=== PATIENT | male | born 1940 | race Caucasian/White ===

== ENCOUNTER 2016-12-02 01:04 | Observation (INO) | payer OTHER ==
[~2016-12-02 01:04] MED LIST: ASPIRIN PO STA; NITROGLYCERIN SL PRN
[2016-12-02 01:17] LABS: MANUAL DIFF NEEDED? NO
[2016-12-02 01:19] LABS: BASO% 0.3 % (0.0-0.8); EOS# 0.23 X1000 (0.0-0.7); EOS% 2.2 % (0.0-10.0); HEMATOCRIT 35.8 % (42.0-52.0); IMM GRAN# 0.03 X1000 (0.0-0.04); IMM GRAN% 0.3 % (0.0-0.5); LYMPH# 3.29 X1000 (1.2-3.4); LYMPH% 31.2 % (20.5-51.1); MCH 25.9 PG (27-31); MCHC 33.5 g/dL (33-37); MCV 77.2 FL (81-99); MONO# 0.87 X1000 (0.11-0.59); MONO% 8.2 % (1.7-9.3); MPV 11.9 FL (7.4-10.4); NEUT% 57.8 % (42.2-75.2); PLT 264 X1000 (130-400); RBC 4.64 XMIL (4.7-6.1)
[2016-12-02] MEDS ORDERED: ZOFRAN IV ONE (01:19)
[2016-12-02] MEDS ORDERED: MORPHINE IV ONE (01:19)
[2016-12-02] MEDS ORDERED: PROTONIX IV ONE (01:19)
[2016-12-02] MEDS ORDERED: LOPRESSOR IV ONE (01:19)
[2016-12-02] MEDS ORDERED: NITROGLYCERIN TOP ONE (01:19)
[2016-12-02] MEDS ORDERED: SODIUM CHLORIDE 0.9% INJ ONE (01:19)
[2016-12-02 01:33] LABS: INR 1.04; PROTIME 10.6 Seconds (9.2-11.7); PTT 20.3 Seconds (22.0-36.0)
--- NOTE | 2016-12-02 01:42 | PROVIDER DOCUMENTATION ---
HPI-Chest Pain - General Source: patient - History of Present Illness-CP Location: reports: substernal Chest Pain Radiation: reports: back Quality of Pain: reports: tightness Severity in ED: mild Onset/Duration: other (3 weeks) Timing: intermittent, getting worse Context/Activities at Onset: reports: none Modifying Factors: improves with: nothing Nitro Today/Relief: provided by ED Aspirin Treatment Today: 325 mg x 1, provided by ED Similar Symptoms Previously?: Yes Recently Seen Here or By Another Healthcare Provider: No <Rosa Elena Plascencia - Last Filed: 12/02/16 02:05> <Jacky Nuno - Last Filed: 12/02/16 02:09> - General Chief Complaint: Chest Pain Stated Complaint: CP Time Seen by Provider: 12/02/16 01:18 Allergies/Adverse Reactions: Patient Allergies Allergy/AdvReac Type Severity Reaction Status Date / Time No Known Allergies Allergy Verified 12/02/16 01:17 Home Medications: Home Medication List Medication Instructions Recorded Confirmed Last Taken Type Amlodipine [Norvasc] 5 mg PO DAILY 06/28/16 12/02/16 12/01/16 History Clopidogrel [Plavix] 75 mg PO DAILY 06/28/16 12/02/16 12/01/16 History Glipizide/Metformin HCl 1 tab PO BID 06/28/16 12/02/16 12/01/16 History [Glipizide-Metformin 5-500 mg] Isosorbide Mononitrate E.r. [Imdur] 60 mg PO DAILY 06/28/16 12/02/16 12/01/16 History Metoprolol Succinate 175 mg PO BID 06/28/16 12/02/16 12/01/16 History Omeprazole 40 mg PO DAILY 06/28/16 12/02/16 12/01/16 History Ranolazine [Ranexa] 1,000 mg PO BID 06/28/16 12/02/16 12/01/16 History Omeprazole 20 mg PO HS 12/02/16 12/02/16 12/01/16 History - History of Present Illness-CP Nature of Presenting Problem: 76 year old M presents to the ED via EMS with a cc of chest pain intermittently x3 weeks. PT states pain came on with activity. Pt states yesterday the pain began lasting longer with shortness of breath coming on without activity. Pt has a hx of CAD, HTN, cardiac cath, and A-Fib. PT is noncompliant with medications. (Rosa Elena Plascencia) Review of Systems - Adult - REVIEW OF SYSTEMS - ADULT Constitutional: denies: chills, fever Eyes: reports: no symptoms reported Ears, Nose, Mouth & Throat: reports: no symptoms reported Cardiovascular: reports: chest pain. denies: palpitations Respiratory: reports: shortness of breath. denies: cough Gastrointestinal: denies: nausea, vomiting Genitourinary: reports: no symptoms reported Musculoskeletal: reports: no symptoms reported Integumentary: reports: no symptoms reported Neurological: reports: no symptoms reported Psychiatric: reports: no symptoms reported Endocrine: reports: no symptoms reported Hematologic/Lymphatic: reports: no symptoms reported Allergic/Immunologic: reports: no symptoms reported All Other Systems: Reviewed and Negative <Rosa Elena Plascencia - Last Filed: 12/02/16 02:05> Past History - Adult - PAST MEDICAL HISTORY-ADULT Review of Records: reports: Nursing Assessment Review, Medications Reviewed Major Childhood Illnesses: reports: denies history Cardiovascular: reports: A-Fib, arrhythmia (svt), CAD, HTN, hyperlipidemia, other (SVT ) Respiratory: reports: denies history Gastrointestinal: reports: denies history Obstetrical/Gynecological: reports: denies history Genitourinary: reports: prostate cancer Musculoskeletal: reports: denies history Neurological: reports: denies history Endocrine/Immune: reports: Diabetes Other Conditions: reports: denies history - PRIOR SURGERIES/PROCEDURES Surgical/Procedure History: reports: other (Prostectomy;) - PRIOR HOSPITALIZATIONS Prior Hospitalizations: reports: for similar symptoms - IMMUNIZATION STATUS Childhood Immunizations: See Nurse Assessment Flu Vaccine: See Nurse Assessment - FAMILY HISTORY Family History: reviewed, not pertinent - SOCIAL HISTORY Smoking: non-smoker Substance Use: none/never Alcohol Use Frequency: never <Rosa Elena Plascencia - Last Filed: 12/02/16 02:05> Physical Exam-General - PHYSICAL EXAM-ADULT Initial Vital Signs Reviewed: Yes - CONSTITUTIONAL General Appearance: alert, anxious - RESPIRATORY Respiratory: lungs clear, normal breath sounds, other (left upper anterior chest wall tenderness) - CARDIOVASCULAR Cardiovascular: normal peripheral pulses, regular rate, rhythm, no edema - SKIN Integumentary: normal color, normal turgor, warm/dry - PSYCHIATRIC Psych/Mental Status: oriented x 3, anxious <Rosa Elena Plascencia - Last Filed: 12/02/16 02:05> Progress - EKG 1 Time of EKG reading by physician:: 01:05 EKG Read and Signed by:: Jacky Nuno EKG Interpretation (*Must complete 3 of following elements*): Abnormal Rate: 71 Rhythm: NSR ST Wave: non-specific ST changes - XRAY 1 XRAY Study: Chest Impression: Abnormal XRAY Interpretation: mild CHF: Dr. Nuno- ER MD - CONSULTS/PCP/HOSPITALIST Notification #1 *Consult/PCP/Hospitalist*: Dr. Restrepo- Hospitalist DMM Time Discussed: 02:06 Consult Disposition: Will see in ED, Admit <TemoAlyssiaa - Last Filed: 12/02/16 02:05> <Jacky Nuno - Last Filed: 12/02/16 02:09> - PLAN OF CARE/RESULTS Progress/Plan/Lab Results: plan of care: imaging, labs, medications, EKG Orders Category Date Time Status Cardiac Monitoring DIRECTED Care 12/02/16 01:05 Active Saline Loc NOW Care 12/02/16 01:05 Active CHEST-2 VIEWS [RAD] Stat Exams 12/02/16 01:05 Taken CBC WITH ELECTRONIC DIFF [HEME] Stat Lab 12/02/16 01:05 Completed CK PROFILE [SP CHEM] Stat Lab 12/02/16 01:05 Completed COMPREHENSIVE METABOLIC PANEL [CHEM] Stat Lab 12/02/16 01:05 Completed D-DIMER [CHEM] Stat Lab 12/02/16 01:05 Completed MAGNESIUM [CHEM] Stat Lab 12/02/16 01:05 Completed PRO B-NATRIURETIC PEPTIDE Stat Lab 12/02/16 01:05 Completed PROTIME WITH INR [COAG] Stat Lab 12/02/16 01:05 Completed PTT [COAG] Stat Lab 12/02/16 01:05 Completed TROPONIN T Stat Lab 12/02/16 01:05 Completed Aspirin Med 12/02/16 01:04 Discontinued 325 mg PO STAT STA Furosemide [Lasix] Med 12/02/16 02:05 Discontinued 40 mg IV NOW ONE Metoprolol [Lopressor] Med 12/02/16 01:19 Discontinued 5 mg IV NOW ONE Morphine Med 12/02/16 01:19 Discontinued 4 mg IV NOW ONE Nitroglycerin Med 12/02/16 01:19 Discontinued 1 inch TOP NOW ONE Nitroglycerin Sl [Nitroglycerin] Med 12/02/16 01:04 Active 0.4 mg SL Q5M PRN PRN Ondansetron [Zofran] Med 12/02/16 01:19 Discontinued 4 mg IV NOW ONE Pantoprazole [Protonix] Med 12/02/16 01:19 Discontinued 40 mg IV NOW ONE Sodium Chloride 0.9% Med 12/02/16 01:19 Discontinued 10 ml INJ NOW ONE EKG [EKG] Stat Ther 12/02/16 01:05 Ordered Laboratory Tests 12/02/16 12/02/16 12/02/16 01:05 01:05 01:05 WBC 10.55 RBC 4.64 L Hgb 12.0 L Hct 35.8 L MCV 77.2 L MCH 25.9 L MCHC 33.5 RDW Std Deviation 14.3 Plt Count 264 MPV 11.9 H Immature Gran % (Auto) 0.3 Neut % (Auto) 57.8 Lymph % (Auto) 31.2 [place] % (Auto) 8.2 Eos % (Auto) 2.2 Baso % (Auto) 0.3 Immature Gran # (Auto) 0.03 Neut # (Auto) 6.10 Lymph # (Auto) 3.29 [place] # (Auto) 0.87 H Eos # (Auto) 0.23 Baso # (Auto) 0.03 PT INR PTT (Actin FS) D-Dimer 0.14 Sodium 134 L Potassium 4.7 Chloride 97 L Carbon Dioxide 24 L Anion Gap 13 BUN 22 Creatinine 1.3 H Estimated GFR/1.73 m2 54 BUN/Creatinine Ratio 17 Glucose 320 H Calculated Osmolality 284 Calcium 9.2 Magnesium 1.2 L Total Bilirubin 0.31 AST 16 ALT 14 Alkaline Phosphatase 120 Creatine Kinase 41 Troponin T Fjh-O-Bqdivvwuqmk Pept Total Protein 7.7 Albumin 3.6 Globulin 4.1 Albumin/Globulin Ratio 0.9 12/02/16 12/02/16 12/02/16 01:05 01:05 01:05 WBC RBC Hgb Hct MCV MCH MCHC RDW Std Deviation Plt Count MPV Immature Gran % (Auto) Neut % (Auto) Lymph % (Auto) [place] % (Auto) Eos % (Auto) Baso % (Auto) Immature Gran # (Auto) Neut # (Auto) Lymph # (Auto) [place] # (Auto) Eos # (Auto) Baso # (Auto) PT 10.6 INR 1.04 PTT (Actin FS) 20.3 L D-Dimer Sodium Potassium Chloride Carbon Dioxide Anion Gap BUN Creatinine Estimated GFR/1.73 m2 BUN/Creatinine Ratio Glucose Calculated Osmolality Calcium Magnesium Total Bilirubin AST ALT Alkaline Phosphatase Creatine Kinase Troponin T 0.090 Gyz-Y-Qazoxajmiki Pept 1558 H Total Protein Albumin Globulin Albumin/Globulin Ratio Vital Signs - 24 hr 12/02/16 12/02/16 01:10 01:58 Temperature 97.8 F Pulse Rate 70 65 Respiratory 18 12 Rate Blood Pressure 216/110 167/84 O2 Sat by Pulse 100 98 Oximetry Pt given results. Pt will be admitted to the hospitalist group. PT in agreement with plan of care. (Rosa Elena Plascencia) Departure <Rosa Elena Plascencia - Last Filed: 12/02/16 02:05> - Departure Time of Disposition Order: 02:08 Certified Medical Emergency: Emergent <Jacky Nuno - Last Filed: 12/02/16 02:09> - Departure DIAGNOSIS: Chest pain at rest, Hypertensive urgency Disposition: ADMITTED INPATIENT 09 Condition: Stable Referrals: None,PCP [Primary Care Provider] - Attestation - Scribe Verification/Attestation Scribe:: Rosa Elena Plascencia Acting as Scribe for:: Jacky Nuno Scribe documention review:: This chart was documented by a scribe and accurately reflects the service the provider performed and the decisions made by the provider. <Rosa Elena Plascencia - Last Filed: 12/02/16 02:05> Physician Attestation - Physician Attestation I, the provider, attest to the following statement:: Jacky Nuno Physician documentation Attestation:: This documentation recorded by the scribe accurately reflects the service I personally performed and the decisions made by me. <Rosa Elena Plascencia - Last Filed: 12/02/16 02:05>
[2016-12-02 01:43] LABS: ALBUMIN 3.6 g/dL (3.5-5.0); CALCIUM 9.2 mg/dL (8.8-10.2); MAGNESIUM 1.2 mg/dL (1.5-2.7); POTASSIUM 4.7 mmol/L (3.5-5.1); TOTAL BILIRUBIN 0.31 mg/dL (0.20-1.00); TOTAL PROTEIN 7.7 g/dL (6.3-8.3)
[2016-12-02] MEDS ORDERED: LASIX IV ONE (02:05)
[2016-12-02] MEDS ORDERED: MAGNESIUM SULFATE 2 GM/S.W.I. 50 ML IV ONE (03:06)
--- NOTE | 2016-12-02 04:23 | HISTORY AND PHYSICAL ---
PRIMARY CARE PHYSICIAN: None. CHIEF COMPLAINT: Chest pain. HISTORY OF PRESENTING ILLNESS: This is a 76-year-old male with a history of diabetes mellitus type 2, hypertension and atrial fibrillation, had presented to the emergency department complaining of chest pain that has been going on intermittently for the past 2 weeks. He states that he has some mild shortness of breath and he described chest pain as pressure-like. He states over the past day or so, it started getting worse and rated about a 6/10 and subsequently had come to the emergency department. In the ER, he was evaluated. Due to his presenting symptoms, it was thought that he would need hospitalization for further management. At the time of my examination, he had denied any headache, fever, chills, nausea, vomiting, diarrhea, hemoptysis, melena, weight changes, but complained of chest discomfort. PAST MEDICAL HISTORY: Include diabetes mellitus type 2, hypertension, atrial fibrillation. PAST SURGICAL HISTORY: Prostate surgery. ALLERGIES: No known drug allergies. CURRENT MEDICATIONS: As in the MAR. SOCIAL HISTORY: He denies any history of smoking, alcohol or illicit drug use. FAMILY HISTORY: Positive for coronary disease in mother. REVIEW OF SYSTEMS: Twelve point systems is as in HPI. Other systems negative. PHYSICAL EXAMINATION: GENERAL: Cooperative, friendly male. He is resting comfortably now. VITAL SIGNS: Temperature 97.8 degrees, pulse 70, respiration 18, blood pressure 167/84. HEENT: Atraumatic normocephalic. Extraocular movements intact. PERRLA. NECK: No masses. CHEST: Clear to auscultation. CARDIOVASCULAR: Regular. ABDOMEN: Soft. Positive bowel sounds. EXTREMITIES: No edema. NEURO: He is awake, alert, oriented x3. : No bladder distention. SKIN: Warm. LABORATORIES AND STUDIES: Sodium 134, potassium 4.7, chloride 97, CO2 is 24, BUN is 22, creatinine is 1.3, glucose is 320, magnesium is 1.2. WBC 10.55, hemoglobin 12.0, hematocrit 35.8, platelets 264,000. ASSESSMENT: This is a 76-year-old male with a history of diabetes mellitus type 2, hypertension and atrial fibrillation, had presented to the emergency department will complaint of chest pain. We will place patient in for observation for further evaluation and management. 1. Chest pain. 2. Diabetes mellitus type 2. 3. Hypertension. 4. Hypomagnesemia. PLAN: 1. We will admit the patient to medical floor with telemetry. 2. Continue with cardiac workup. Check EKG, serial cardiac enzymes. Have patient continue on aspirin with use of sublingual nitroglycerin and morphine p.r.n. chest pain. 3. We will monitor blood glucose closely and put patient on sliding scale insulin regimen. 4. We will monitor blood pressure. Resume antihypertensive agents. 5. We will replace his magnesium. 6. We will put patient on DVT prophylaxis with EARLINE summers. 7. We will continue to follow and reassess.
[2016-12-02] MEDS ORDERED: TYLENOL PO PRN (05:27)
[2016-12-02] MEDS ORDERED: SODIUM CHLORIDE 0.9% INJ SCH (05:27)
[2016-12-02] MEDS ORDERED: ZOFRAN IV PRN (05:27)
[2016-12-02] MEDS: PROTONIX IV SCH (05:51)
[2016-12-02] MEDS ORDERED: PRILOSEC PO SCH ×2 (07:00→09:00)
--- NOTE | 2016-12-02 07:37 | Diag Imaging Result Document ---
PROCEDURE NAME: CHEST-2 VIEWS - 12/02/2016 CHEST X-RAY, 2 VIEWS: COMPARISON: 10/08/2016. FINDINGS: The lungs are normally expanded and clear. Heart size and mediastinal contours are normal. No pneumothorax or pleural effusion. IMPRESSION: Negative exam.
[2016-12-02] MEDS: HUMULIN R SUBQ SCH ×4 (07:45→20:26)
[2016-12-02] MEDS ORDERED: IMDUR PO SCH (09:00)
[2016-12-02] MEDS ORDERED: PLAVIX PO SCH (09:00)
[2016-12-02] MEDS ORDERED: ASPIRIN PO SCH (09:00)
[2016-12-02] MEDS ORDERED: NORVASC PO SCH (09:00)
[2016-12-02] MEDS: RANEXA PO SCH ×2 (09:28→20:25)
[2016-12-02] MEDS: TOPROL XL PO SCH ×3 (09:29→20:26)
[2016-12-02] MEDS: NORCO-5 PO PRN ×2 (10:32→19:00)
--- NOTE | 2016-12-02 14:12 | CONSULTATION ---
DATE OF CONSULTATION: 12/02/2016 INDICATION FOR THE CONSULTATION: Chest pain, non ST-elevation [place]. HISTORY OF PRESENT ILLNESS: Mr. Lea is a 76-year-old white male with a history of coronary disease. He actually had severe 2 vessel disease noted on catheterization in 2010, however refused bypass at that time. He presented for evaluation of chest discomfort that has been occurring over the last 3 days or so. Most of these episodes occur throughout the day. He is a very poor historian. It does not seem that there is any sort of exertional component and all episodes seem to occur at rest. He has not had any other associated symptoms. It seems like those symptoms get better when he lays down at night. He can report no orthopnea, no syncope. I believe he has had compliance with his medications. However again he is an extremely poor historian. PAST MEDICAL HISTORY: Significant for: 1. Coronary artery disease. Last cardiac catheterization was performed in [place] in 2010. At that time, he had an EDP of 13. Right coronary showed 50%-60% lesion at the ostium. Left main had ostium 30% lesion. Left anterior descending had a proximal 70% at the first diagonal and an 80% at the second diagonal. The circumflex had a lesion of around 80% in the mid segment. Again, he turned down bypass at that time. 2. Paroxysmal atrial fibrillation. Not a candidate for anticoagulation secondary to history of GI bleeds. 3. History of CVA. 4. Palpitations. 5. Hypertension. 6. Hyperlipidemia. 7. Type 2 diabetes. 8. Previous smoker. Quit at age 42. 9. History of carotid artery disease. 10. History of GI bleeding. 11. Nephrolithiasis. SOCIAL HISTORY: No current tobacco abuse. Again, he quit around the age of 42. He is . FAMILY HISTORY: Significant for a father with a CVA around the age of 62. REVIEW OF SYSTEMS: A 10 system review of systems is negative except for those as mentioned in HPI. PHYSICAL EXAMINATION: Vital Signs: He has been afebrile. Heart rates in the 50s to 60s. His blood pressures have been widely variable. In the room they were as low was 130s and as high as the 160s. Generally: In no acute distress. HEENT: Oropharynx is moist. Poor dentition. Eye examination: [place] conjunctivae. White sclerae. Neck: Examination shows no obvious thyromegaly or thyroid tenderness. Cardiovascular: He is in a regular rate and rhythm. He has no obvious murmurs. He has no S3. He has no lower extremity edema. No carotid bruits. Chest: Clear bilaterally. No increased work of breathing. Abdomen: Soft, nontender, nondistended. No obvious organomegaly. Skin Exam: Warm and dry throughout without any rashes. Neurological: He seems to be moving all extremities well. Cranial nerves 2-12 are intact without any sensation deficits. Psychiatric: The patient is alert, oriented. He seems mildly anxious. He seems to have repetitive circular questioning. PERTINENT DATA: Chest x-ray was unremarkable. His EKG showed sinus rhythm, with no clear evidence of ischemic changes. White count is 10.5. His hematocrit is 35.8, platelet count is 264,000. His INR is 1. D-dimer 0.14. Sodium 134, potassium 4.,7 BUN 22, creatinine 1.3. His cardiac enzymes have trended positive with the initial 0.090, second 0.152. ProBNP is 1558. ASSESSMENT: Non ST-elevation myocardial infarction in a patient with a history of multi-vessel coronary artery disease. PLAN: Patient is refusing echocardiogram. In addition he is refusing inpatient stay. I had an at-length discussion with him about the risks, benefits alternatives to the evaluation. Despite the risk of potential in the immediate future with his potentially wanting to go home he seems to persist with this. He reportedly has some issues with some illnesses in his family members and is concerned about those. I urgently recommended that he not go home and stay for a full thorough evaluation. However he seems resistant to do this. If the patient chooses to stay we will likely need to proceed with cardiac catheterization.
[2016-12-03] MEDS: PROTONIX IV SCH ×2 (04:09→08:45)
[2016-12-03] MEDS: NORCO-5 PO PRN (04:10)
[2016-12-03] MEDS: XANAX PO ONE ×2 (04:10→04:18)
[2016-12-03 04:18] VITALS: BP 153/65
--- NOTE | 2016-12-03 08:05 | Diag Imaging Result Document ---
PROCEDURE NAME: HEAD W/O CONTRAST - 12/03/[address], 12/03/2016: A CT dose reduction protocol was used. COMPARISON: 10/08/2016. FINDINGS: Stable mild atrophy and periventricular white matter chronic microvascular disease. No intracranial mass or hemorrhage. The skull is intact. The sinuses, mastoids, and middle ears are clear. IMPRESSION: No acute disease or change from prior. [facility]
--- NOTE | 2016-12-03 19:18 | DISCHARGE SUMMARY ---
ADMISSION DATE: 12/02/2016 DISCHARGE DATE: 12/03/2016 DATE OF ADMISSION: 12/02/2016. DATE OF DISCHARGE: The patient left AMA on 12/03/2016. CONSULTATIONS: Jason Hills M.D. PROCEDURE: Head CT showed no acute disease or change from prior. Stable mild atrophy and periventricular white matter. Chronic microvascular disease. DISCHARGE DIAGNOSES: 1. Chest pain. 2. Diabetes mellitus type 2. 3. Hypertension. 4. Hypermagnesemia. 5. Coronary artery disease. Last heart catheterization was performed in [place] in 2010. 6. Paroxysmal atrial fibrillation. He is not a candidate for anticoagulation secondary to GI bleed. 7. History of cerebrovascular accident. 8. Palpitations. 9. Hyperlipidemia. 10. Previous smoker, quit at age 42. 11. Carotid artery disease history. 12. GI bleed history. 13. Nephrolithiasis history. 14. Qhu-OC-nvgmhytse myocardial infarction this admit. 15. Questionable undiagnosed dementia versus acute delirium. HOSPITAL COURSE: Briefly, Mr. Lea is a 76-year-old male with a history of diabetes mellitus, hypertension, atrial fibrillation, previous GI bleed who is not a candidate for anticoagulation, CAD with heart catheterization in the past at [facility]. The patient came to the ED complaining of chest pain intermittently for the past 2 weeks. He states he has some mild shortness of breath. He describes his chest pain as pressure. He states that over the past day or so it started getting worse and subsequently he came to the ED. The patient did have positive troponins. Despite having a non-STEMI in a patient with a history of multivessel coronary artery disease, the patient was refusing an echocardiogram. He was also refusing inpatient stay. Dr. Hills had an at length discussion with him about the risks, benefits and alternatives of the evaluation despite the risk of potential in the immediate future with his potentially wanting to go home. He did report to Dr. Schmitz so he has some issues with some illnesses in family members and was concerned about those. He was urgently recommended not to go home and to stay for a thorough evaluation. He was reluctant and if the patient chose to say he would likely need to proceed with a cardiac catheterization. The patient throughout the night was wanting to sign out AMA. Again it was discussed with the patient if he could stay. The patient was alert and oriented x4. It was discussed with Blaire Foley CAMERON and Dr. Restrepo who stated the patient was alert and oriented, that he could sign out AMA. Just just a few minutes later the patient was wanting to call his family. He spoke with his ex- who thought that he had been gambling and that he was being tied down to the bed. None of these things were occurring. The patient was no longer alert and oriented x4. He would come back again and be alert and oriented x4, and then he would come back with confusion this a.m. I guess he chose to sign out AMA before talking with any doctors. The patient has already left. I have made Dr. Mckin[place] aware that the patient has left. DISPOSITION: Patient left AMA. Dictated by CAMERON Witt for Elias Wright MD
== END 2016-12-03 08:22 | disposition left against medical advice (07) ==
LOC: EDBD → SUPCPDRO 01:04 → ED 01:04 → EDIPHOLD 03:07 → 3S 18:29
PROVIDERS: ATTEND Internal Medicine
DX: R07.89 Other chest pain (principal); I21.4 Non-ST elevation (NSTEMI) myocardial infarction; E11.9 Type 2 diabetes mellitus without complications; I10 Essential (primary) hypertension; E83.41 Hypermagnesemia; I25.10 Atherosclerotic heart disease of native coronary artery without angina pectoris; I48.91 Unspecified atrial fibrillation; E78.5 Hyperlipidemia, unspecified; R06.02 Shortness of breath; M54.9 Dorsalgia, unspecified; F03.90 Unspecified dementia, unspecified severity, without behavioral disturbance, psychotic disturbance, mood disturbance, and anxiety; Z79.02 Long term (current) use of antithrombotics/antiplatelets; Z79.899 Other long term (current) drug therapy; Z79.84 Long term (current) use of oral hypoglycemic drugs; Z91.14 Patient's other noncompliance with medication regimen; Z90.79 Acquired absence of other genital organ(s); Z86.73 Personal history of transient ischemic attack (TIA), and cerebral infarction without residual deficits; Z82.49 Family history of ischemic heart disease and other diseases of the circulatory system; Z87.891 Personal history of nicotine dependence; Z87.442 Personal history of urinary calculi; Z82.3 Family history of stroke
CPT/HCPCS: 70450; 71020; 80053; 82550; 82948; 83735; 83880; 84484; 85025; 85379; 85610; 85730; 93005; 96365; 96375; C9113; J1940; J2270; J2405; J3475; S0164

== ENCOUNTER 2019-01-12 00:38 | Inpatient (IN) ==
[2019-01-12] MEDS ORDERED: ADENOCARD ONE ×3 (00:50→07:37)
[2019-01-12] MEDS ORDERED: NS 1,000 ML ONE ×2 (00:51→07:37)
[2019-01-12] MEDS ORDERED: ADENOCARD IV ONE ×2 (01:01→08:02)
[2019-01-12] MEDS ORDERED: LOPRESSOR IV ONE ×2 (01:01→01:26)
[2019-01-12 01:24] LABS: BASO# 0.05 X1000 (0.0-0.2); BASO% 0.4 % (0.0-0.8); EOS# 0.26 X1000 (0.0-0.7); EOS% 2.1 % (0.0-10.0); HEMATOCRIT 40.7 % (42.0-52.0); HEMOGLOBIN 13.6 g/dL (14.0-18.0); IMM GRAN# 0.04 X1000 (0.0-0.04); IMM GRAN% 0.3 % (0.0-0.5); LYMPH# 5.08 X1000 (1.2-3.4); LYMPH% 40.2 % (20.5-51.1); MCH 28.1 PG (27-31); MCHC 33.4 g/dL (33-37); MCV 84.1 FL (81-99); MONO# 1.26 X1000 (0.11-0.59); MPV 12.1 FL (7.4-10.4); NEUT# 5.95 X1000 (1.4-6.5); PLT 242 X1000 (130-400); RBC 4.84 XMIL (4.7-6.1); RDW 13.3 % (11.5-14.5); WBC 12.64 X1000 (4.8-10.8)
[2019-01-12] MEDS ORDERED: ASPIRIN PO ONE (02:15)
[2019-01-12] MEDS ORDERED: NITROGLYCERIN TOP ONE (02:15)
[2019-01-12] MEDS ORDERED: NS 500 ML IV ONE (02:31)
[2019-01-12 02:40] LABS: CALCIUM 9.1 mg/dL (8.8-10.2); CREATININE 1.2 mg/dL (0.7-1.2); POTASSIUM 4.6 mmol/L (3.5-5.1)
--- NOTE | 2019-01-12 04:05 | PROVIDER DOCUMENTATION ---
This chart was entered by Reagan Arroyo Scribe, acting as scribe for Nalini Banerjee MD. HPI-Cardiac General - General Chief Complaint: Palpitations Stated Complaint: tachycardia Time Seen by Provider: 01/12/19 00:41 Source: patient Allergies/Adverse Reactions: Patient Allergies Allergy/AdvReac Type Severity Reaction Status Date / Time No Known Allergies Allergy Verified 12/16/16 02:22 Home Medications: Home Medication List Medication Instructions Recorded Confirmed Last Taken Type Clopidogrel [Plavix] 75 mg PO DAILY 06/28/16 09/06/17 09/05/17 History Glipizide/Metformin HCl 1 tab PO BID 06/28/16 09/06/17 09/05/17 History [Glipizide-Metformin 5-500 mg] Metoprolol Succinate 200 mg PO BID 06/28/16 09/06/17 09/05/17 History Omeprazole 40 mg PO DAILY 06/28/16 09/06/17 09/05/17 History Butalb/APAP/Caffeine [Fioricet] 1 each PO DAILY PRN 09/06/17 09/06/17 09/05/17 History Promethazine [Phenergan] 25 mg PO DAILY PRN 09/06/17 09/06/17 09/05/17 History - History of Present Illness-Cardiac Nature of Presenting Problem: Pt is a 78 y/o M presents to the ED with an elevated heart rate. Pt report he woke up feeling weak and when he went to check his pulse it was going so fast he could not count it. Pt reports he has hx of supraventricular tachycardia. He says he was coming to the ED every 5-6 months for it until he had stent placed. He reports some chest pain only a after he got to the ED, no dyspnea. Location: reports: substernal Quality of Pain: reports: sharp Severity in ED: moderate Onset/Duration: just prior to arrival Timing: still present Context/Activities at Onset: reports: none Modifying Factors: improves with: nothing Palpitation Quality: fast/pounding heart beat History of arrythmia: reports: SVT Recent use of:: reports: no stimulants Nitro Today/Relief: reports: no nitro taken today Aspirin Treatment Today: reports: no aspirin today Similar Symptoms Previously?: Yes Recently Seen Here or By Another Healthcare Provider: No Review of Systems - Adult - REVIEW OF SYSTEMS - ADULT Constitutional: reports: other (weakness). denies: chills, fever Eyes: reports: no symptoms reported Ears, Nose, Mouth & Throat: reports: no symptoms reported Cardiovascular: reports: chest pain, palpitations. denies: edema, orthopnea, poor circulation, syncope Respiratory: reports: no symptoms reported Gastrointestinal: reports: no symptoms reported Genitourinary: reports: no symptoms reported Musculoskeletal: denies: back pain, neck pain Integumentary: reports: no symptoms reported Neurological: denies: dizziness/vertigo, headache/migraines Psychiatric: reports: no symptoms reported Endocrine: reports: no symptoms reported Hematologic/Lymphatic: reports: no symptoms reported Allergic/Immunologic: reports: no symptoms reported All Other Systems: Reviewed and Negative Past History - Adult - PAST MEDICAL HISTORY-ADULT Review of Records: reports: Old Records Reviewed, Nursing Assessment Review, Medications Reviewed Major Childhood Illnesses: reports: denies history Cardiovascular: reports: A-Fib, arrhythmia (svt), CAD, HTN, hyperlipidemia, other (SVT ) Respiratory: reports: denies history Gastrointestinal: reports: denies history Obstetrical/Gynecological: reports: denies history Genitourinary: reports: prostate cancer Musculoskeletal: reports: denies history Neurological: reports: denies history Endocrine/Immune: reports: Diabetes Other Conditions: reports: denies history - PRIOR SURGERIES/PROCEDURES Surgical/Procedure History: reports: reviewed, not pertinent, other (Prostectomy;) - PRIOR HOSPITALIZATIONS Prior Hospitalizations: reports: for similar symptoms - IMMUNIZATION STATUS Childhood Immunizations: See Nurse Assessment Flu Vaccine: See Nurse Assessment - FAMILY HISTORY Family History: reviewed, not pertinent - SOCIAL HISTORY Smoking: non-smoker, quit greater than 1 year Living Situation: alone Physical Exam-General - PHYSICAL EXAM-ADULT Initial Vital Signs Reviewed: Yes - CONSTITUTIONAL General Appearance: appears well, alert, no apparent distress - EYES Eyes: PERRL/EOMI, pink conjunctivae - HEAD, EARS, NOSE, MOUTH & THROAT HENMT: moist mucous membranes, normal ENT inspection, pharynx normal - NECK Neck: non-tender, full range of motion, supple, normal inspection - RESPIRATORY Respiratory: lungs clear, normal breath sounds, no pleuratic chest pain, no respiratory distress, no accessory muscle use - CARDIOVASCULAR Cardiovascular: no edema, tachycardia (regular) - MUSCULOSKELETAL Back Exam: normal inspection, no CVA tenderness, no vertebral tenderness Extremity: normal range of motion, non-tender, normal gait, normal inspection - SKIN Integumentary: normal color, normal turgor, warm/dry - NEUROLOGIC Neurologic: grossly normal, no motor/sensory deficits - PSYCHIATRIC Psych/Mental Status: normal mood/affect, normal thought content, normal thought process, oriented x 3 Progress - PLAN OF CARE/RESULTS Progress/Plan/Lab Results: Vital Signs - 8 hr 01/12/19 00:40 01/12/19 01:14 01/12/19 01:17 Temperature 97.9 F Pulse Rate 180 H 128 H 132 H Respiratory Rate 20 17 12 Blood Pressure 183/144 193/110 154/101 O2 Sat by Pulse Oximetry 98 100 100 01/12/19 01:23 01/12/19 01:27 01/12/19 01:32 Temperature Pulse Rate 129 H 117 H 107 H Respiratory Rate 24 19 18 Blood Pressure 190/132 159/119 192/119 O2 Sat by Pulse Oximetry 96 99 99 01/12/19 01:37 01/12/19 01:43 01/12/19 01:47 Temperature Pulse Rate 102 H 98 H 101 H Respiratory Rate 15 19 18 Blood Pressure 198/124 186/103 171/99 O2 Sat by Pulse Oximetry 100 99 99 01/12/19 01:52 01/12/19 01:57 01/12/19 02:02 Temperature Pulse Rate 99 H 101 H 100 H Respiratory Rate 17 15 17 Blood Pressure 165/105 181/110 181/103 O2 Sat by Pulse Oximetry 99 99 99 01/12/19 02:07 01/12/19 02:12 01/12/19 02:17 Temperature Pulse Rate 104 H 101 H 99 H Respiratory Rate 16 12 24 Blood Pressure 188/108 184/131 187/107 O2 Sat by Pulse Oximetry 100 98 98 01/12/19 02:23 01/12/19 02:27 01/12/19 02:32 Temperature Pulse Rate 104 H 113 H 94 H Respiratory Rate 13 18 12 Blood Pressure 176/90 173/96 172/112 O2 Sat by Pulse Oximetry 99 95 99 01/12/19 02:37 01/12/19 02:42 01/12/19 02:47 Temperature Pulse Rate 99 H 94 H 93 H Respiratory Rate 14 15 19 Blood Pressure 182/95 190/104 177/97 O2 Sat by Pulse Oximetry 98 99 99 01/12/19 02:52 01/12/19 02:57 01/12/19 03:02 Temperature Pulse Rate 96 H 93 H 95 H Respiratory Rate 16 17 19 Blood Pressure 177/105 176/98 178/111 O2 Sat by Pulse Oximetry 98 98 96 01/12/19 03:07 Temperature Pulse Rate 96 H Respiratory Rate 12 Blood Pressure 181/108 O2 Sat by Pulse Oximetry 99 Laboratory Results - last 24 hr 01/12/19 01/12/19 01/12/19 00:52 00:52 01:36 WBC 12.64 H RBC 4.84 Hgb 13.6 L Hct 40.7 L MCV 84.1 MCH 28.1 MCHC 33.4 RDW Std Deviation 13.3 Plt Count 242 MPV 12.1 H Immature Gran % (Auto) 0.3 Neut % (Auto) 47.0 Lymph % (Auto) 40.2 [place] % (Auto) 10.0 H Eos % (Auto) 2.1 Baso % (Auto) 0.4 Immature Gran # (Auto) 0.04 Neut # (Auto) 5.95 Lymph # (Auto) 5.08 H [place] # (Auto) 1.26 H Eos # (Auto) 0.26 Baso # (Auto) 0.05 Sodium Potassium Chloride Carbon Dioxide Anion Gap BUN Creatinine Estimated GFR/1.73 m2 BUN/Creatinine Ratio Glucose POC Glucose 321 H D Calculated Osmolality Calcium Troponin T Hmx-K-Ojqpshewzle Pept 348 01/12/19 01/12/19 01:39 01:39 WBC RBC Hgb Hct MCV MCH MCHC RDW Std Deviation Plt Count MPV Immature Gran % (Auto) Neut % (Auto) Lymph % (Auto) [place] % (Auto) Eos % (Auto) Baso % (Auto) Immature Gran # (Auto) Neut # (Auto) Lymph # (Auto) [place] # (Auto) Eos # (Auto) Baso # (Auto) Sodium 139 Potassium 4.6 Chloride 100 Carbon Dioxide 22 L Anion Gap 17 BUN 21 Creatinine 1.2 Estimated GFR/1.73 m2 59 BUN/Creatinine Ratio 18 Glucose 314 H POC Glucose Calculated Osmolality 292 Calcium 9.1 Troponin T 0.029 Dyn-A-Coizvlyphsn Pept Orders Category Date Time Status IV Insertion ORDERED Care 01/12/19 01:01 Active CHEST-1 VIEW [RAD] Stat Exams 01/12/19 01:01 Taken BASIC METABOLIC PANEL [CHEM] Stat Lab 01/12/19 01:39 Completed CBC WITH ELECTRONIC DIFF [HEME] Stat Lab 01/12/19 00:52 Completed PRO B-NATRIURETIC PEPTIDE Stat Lab 01/12/19 00:52 Completed TROPONIN T Stat Lab 01/12/19 01:39 Completed 0.9% Sodium Chloride Inj [Ns] 1,000 ml Med 01/12/19 00:51 Discontinued .ROUTE As directed 0.9% Sodium Chloride Inj [Ns] 500 ml Med 01/12/19 02:31 Discontinued IV Wide Open mls/hr Adenosine [Adenocard] Med 01/12/19 00:50 Discontinued 24 mg .ROUTE .STK-MED ONE Adenosine [Adenocard] Med 01/12/19 00:59 Discontinued 6 mg .ROUTE .STK-MED ONE Adenosine [Adenocard] Med 01/12/19 01:01 Discontinued 6 mg IV NOW ONE Aspirin Med 01/12/19 02:15 Discontinued 325 mg PO NOW ONE Metoprolol [Lopressor] Med 01/12/19 01:01 Discontinued 5 mg IV NOW ONE Metoprolol [Lopressor] Med 01/12/19 01:26 Discontinued 5 mg IV NOW ONE Nitroglycerin Med 01/12/19 02:15 Discontinued 1 inch TOP NOW ONE EKG [EKG] Stat Ther 01/12/19 00:39 Ordered palpitations, with SVT with HR 180. Immediately treated with adenosine with improvement in HR to 120 and resolution of palpitations. metoprolol given and will further evaluate for causes including but not limited to svt, acs, electrolyte imbalance, pe, ptx pna Result Diagrams: 01/12/19 00:52 01/12/19 01:39 - REASSESSMENT Reassessment #1 Status: improving (feeling well, HR well controlled. chest pain improved. ED work up unremarkable but presentation concerning for ACS will admit for furhter evalation and treatmnet. Discussed case with Dr. Restrepo, Hospitalist, who will s ee and admit pt.) - EKG 1 Time of EKG reading by physician:: 00:42 EKG Read and Signed by:: Nalini Banerjee EKG Interpretation (*Must complete 3 of following elements*): Abnormal Rate: 187 Rhythm: SVT ST Wave: depressed Comments: Nonspecific T wave abnormality 2 Time of EKG reading by physician:: 00:55 (After 6mg of Adenosine) EKG Read and Signed by:: Nalini Bnaerjee EKG Interpretation (*Must complete 3 of following elements*): Abnormal Rate: 139 Rhythm: SVT ST Wave: depressed Prior EKG Comparison: changes noted (rate change) Comments: Nonspecific T wave abnormality - XRAY 1 XRAY Study: Chest Impression: Normal (Negative) Departure - Departure Date of Disposition Decision: 01/12/19 Time of Disposition Decision: 04:05 DIAGNOSIS: SVT (supraventricular tachycardia) Chest pain Qualifiers: Chest pain type: unspecified Qualified Code(s): R07.9 - Chest pain, unspecified Disposition: ADMITTED INPATIENT 09 Certified Medical Emergency: Emergent Condition: Good - Critical Care Note This patient required my direct & personal management of CC.: Yes Total Time (mins): 32 Critical Care Statement: This patient required my direct personal management to treat or rule out processes, the absence of which, could potentiallly result in sudden, clinically significant life or limb threatening deterioration. Attestation - Physician/ ALINE Attestation The physician spent face to face time with patient:: Yes Advanced Practice Provider documentation review:: Supervising physician onsite and consulted in the evaluation and care of this patient. The physician did have a face to face encounter with the patient. This chart was documented by the indicated scribe, (Reagan Arroyo Scribe) and accurately reflects the services I performed and decisions made by me, Nalini Banerjee MD, as attested by the provider's signature.
--- NOTE | 2019-01-12 06:19 | Diag Imaging Result Doc PS360 ---
CHEST-1 VIEW - 01/12/2019 INDICATION: chest pain COMPARISON: 09/05/2017 FINDINGS: The lungs are normally expanded and clear. Heart size and mediastinal contours are normal. No pneumothorax or pleural effusion. IMPRESSION: Negative exam. Electronically signed by Gary Rogers 01/12/2019 6:15 AM
--- NOTE | 2019-01-12 07:27 | EKG Report ---
Test Performed on : 01/12/2019 06:47:43 AM Test Reason : Chest Pain, SVT Blood Pressure : / mmHG Vent. Rate : 166 BPM Atrial Rate : 170 BPM P-R Int : 000 ms QRS Dur : 096 ms QT Int : 256 ms P-R-T Axes : 000 020 161 degrees QTc Int : 425 ms Supraventricular tachycardia. Marked ST abnormality, possible anterior subendocardial injury Abnormal ECG When compared with ECG of 12-JAN-2019 00:55, (Unconfirmed) Non-specific change in ST segment in Inferior leads T wave inversion now evident in Anterior leads Confirmed by Luis MARIE, Joseph ([id number]) on 01/12/2019 8:48:30 AM
[2019-01-12] MEDS ORDERED: CARDIZEM IV ONE (07:32)
[2019-01-12] MEDS ORDERED: LANOXIN IV ONE (07:32)
[2019-01-12] MEDS ORDERED: CORDARONE 360 MG/D5W 360 MG/200 ML IV.SOLN IV ONE (07:33)
[2019-01-12] MEDS ORDERED: CORDARONE 150 MG/D5W 150 MG/100 ML IV.SOLN IV ONE (07:33)
--- NOTE | 2019-01-12 07:33 | EKG Report ---
Test Performed on : 01/12/2019 00:42:57 AM Test Reason : tachycardia Blood Pressure : / mmHG Vent. Rate : 187 BPM Atrial Rate : 092 BPM P-R Int : 000 ms QRS Dur : 086 ms QT Int : 258 ms P-R-T Axes : 000 048 118 degrees QTc Int : [address] depression, consider subendocardial injury Nonspecific T wave abnormality Abnormal ECG When compared with ECG of 05-MAY-2018 05:25, Vent. rate has increased BY 100 BPM Non-specific change in ST segment in Inferior leads ST more depressed in Anterior leads Nonspecific T wave abnormality now evident in Lateral leads Unconfirmed Result
[2019-01-12] MEDS ORDERED: MAGNESIUM SULFATE 4 GM/S.W.I. 4 GM/100 ML IVPB IV ONE (08:12)
[2019-01-12] MEDS ORDERED: TYLENOL PO PRN (08:33)
--- NOTE | 2019-01-12 08:54 | Diag Imaging Result Doc PS360 ---
KUB ABDOMEN - 01/12/2019 INDICATION: Constipation, Abdominal Pain COMPARISON: 07/27/2011 FINDINGS: There is perhaps mild constipation of the proximal colon. No bowel obstruction or free air. No abnormal calcifications. IMPRESSION: Mild constipation but no acute disease. Electronically signed by Gary Rogers 01/12/2019 8:50 AM
[2019-01-12] MEDS: MIRALAX PO SCH (09:00)
[2019-01-12 09:28] LABS: BUN 18 mg/dL (8-22); CALCIUM 8.9 mg/dL (8.8-10.2); GLUCOSE 267 mg/dL (70-104); TCO2 23 mmol/L (25-35)
[2019-01-12 09:37] LABS: CHLORIDE 104 mmol/L (98-107); POTASSIUM 4.2 mmol/L (3.5-5.1); SODIUM 141 mmol/L (136-145)
--- NOTE | 2019-01-12 10:03 | EKG Report ---
Test Performed on : 01/12/2019 08:18:36 AM Test Reason : reevaluate rythm after meds Blood Pressure : / mmHG Vent. Rate : 077 BPM Atrial Rate : 077 BPM P-R Int : 138 ms QRS Dur : 078 ms QT Int : 368 ms P-R-T Axes : 071 015 062 degrees QTc Int : 416 ms Normal sinus rhythm. Normal ECG When compared with ECG of 12-JAN-2019 06:47, (Unconfirmed) Vent. rate has decreased BY [address] no longer depressed in Anterolateral leads T wave inversion no longer evident in Anterolateral leads Confirmed by Luis MARIE, Joseph ([id number]) on 01/13/2019 8:35:47 AM
[2019-01-12 10:16] LABS: CREATININE 1.1 mg/dL (0.7-1.2); ESTIMATED GFR > 60
[2019-01-12 10:19] LABS: AGAP 14; COSMO 293
[2019-01-12] MEDS: LOPRESSOR PO SCH ×2 (10:38→22:12)
[2019-01-12] MEDS: COLACE PO SCH (10:38)
[2019-01-12] MEDS: HUMULIN R SUBQ SCH ×3 (10:39→21:00)
[2019-01-12] MEDS: LOVENOX SUBQ SCH ×2 (10:39→22:13)
[2019-01-12] MEDS: NORVASC PO SCH (10:39)
--- NOTE | 2019-01-12 11:41 | CONSULTATION ---
DATE OF CONSULTATION: 01/12/2019 CHIEF COMPLAINT ON PRESENTATION: Palpitations. HISTORY OF PRESENT ILLNESS: Mr. Lea is a 78-year-old gentleman with a history of coronary artery disease, normally followed by Dr. Stover. The last visit was in late 2017. He woke up early this morning, late last night with complaints of palpitations. He had no chest pain. He reports being somewhat weak, sleeping all day yesterday, missing all of his medications, and feeling somewhat nauseous. He did not have any vomiting. He has had no diarrhea, no fevers. Otherwise, no complaints. No orthopnea. PAST MEDICAL HISTORY: 1. Significant for non-ST elevation MS for which he had a PCI it appears back in August of 2017. At that time, he had a normal left main. The LAD had tandem 80% mid lesions involving the bifurcation of diagonals. Diagonals were tortuous with ostial 80% lesions. Circumflex had a tubular 95% lesion. This was treated with a drug-eluting stent. Medical therapy of the LAD was undertaken. His ejection fraction around that time was 60% by echocardiogram as well as by nuclear scan. 2. Paroxysmal atrial tachycardia. 3. Hypertension. 4. Hyperlipidemia. 5. Diabetes. 6. Carotid artery disease. 7. CVA/TIA. 8. History of GI bleeding. 9. Nephrolithiasis. 10. History of prostate cancer. SOCIAL HISTORY: Does not currently smoke. FAMILY HISTORY: Hypertension. REVIEW OF SYSTEMS: A 10 system review of systems is negative except for those things mentioned in the HPI. PHYSICAL EXAMINATION: Vital Signs: The patient is afebrile. His heart rate is 68. His blood pressure is 152/82. General: He is in no acute distress. He is pleasant. HEENT: Oropharynx is moist. Poor dentition. Eye examination shows pink conjunctivae and white sclerae. Neck: Examination shows no obvious thyromegaly or thyroid tenderness. Cardiovascular: He sounds to be in a regular rate and rhythm. His telemetry currently shows sinus. He has no lower extremity edema. Chest: Examination is clear to auscultation bilaterally. He has no increased work of breathing. Abdomen: Soft, nontender, nondistended. He has no obvious organomegaly. Skin Examination: Warm and dry throughout without any rashes. Neurological: He is moving all extremities well. He has no lateralizing deficits. PERTINENT DATA: His EKG on presentation shows a rapid narrow complex regular tachycardia. He was given 6 mg of adenosine and he appeared to have slowed down into what appears to be a sinus mechanism. He has upright P waves in lead 2 that appear to be clearly identifiable. He then very quickly ramped back up into a regular narrow complex tachycardia. This may be consistent with his previous paroxysmal atrial tachycardia. On one EKG at 6:47, he did have a ST depression in the anterior and lateral leads, possibly indicating some ischemic involvement of the LAD that had not been intervened on. His chest x-ray demonstrated no evidence of significant abnormalities. His white count was 12.6, hematocrit 40, platelet count 242,000. His INR is normal at 1. His sodium is 141, potassium is 4.2, his BUN is 18, creatinine is 1.1. His troponin initially was 0.029 with a subsequent of 0.733. ASSESSMENT: Mr. Lea is a 78-year-old gentleman with ischemic heart disease who presented in atrial tachycardia, which is a known issue for him. PLAN: We will proceed with discontinuing the IV amiodarone and placing him on oral amiodarone. I will arrange a stress test in the morning and if this is unremarkable or showing minimal defects consistent with his LAD type disease, we will likely treat that medically and consider referral as an outpatient to the electrophysiology service for consideration of ablation of this lesion versus continued antiarrhythmic therapy. Currently, he is on amiodarone at 400 mg b.i.d. along with his metoprolol at 100 mg b.i.d. cc: Jason Hills MD
[2019-01-12] MEDS ORDERED: CORDARONE 540 MG in D5W 289.2 ML IV ONE (13:33)
--- NOTE | 2019-01-12 13:37 | PROGRESS NOTE ---
DATE: 01/12/2019 SUBJECTIVE: This patient is feeling better compared with admission. This patient came in with supraventricular tachycardia. Apparently, he has been having this kind of problem before. He has a history also of ischemic heart disease, and he has been evaluated before by Cardiology. OBJECTIVE: Vital Signs: Temperature 98.2 degrees, pulse 60, respiratory rate 19, blood pressure 180/88, and oxygen saturation 99 on room air. HEENT: Head normocephalic. No trauma. PERRLA. Neck: Supple. No JVD. No masses. Central trachea. Chest: Clear to auscultation. No wheezing. No rales. Abdomen: Soft, nontender, nondistended. No hepatosplenomegaly. Extremities: No edema. No clubbing. No cyanosis. Neurological: The patient is alert and oriented x3. No focal deficits. LABORATORY: WBC 12.6, hemoglobin 13.6, hematocrit 40.7, and platelets 242,000. Sodium 141, potassium 4.2, chloride 104, bicarbonate 23, BUN 18, creatinine 1.1, glucose 267, calcium 8.9, magnesium 1.1, and troponin 0.7. ASSESSMENT AND PLAN: 1. Supraventricular tachycardia in a patient with ischemic cardiomyopathy. Cardiology Department evaluated this patient. They will continue with amiodarone and metoprolol, his rate is controlled at this moment. He is feeling much better. Likely, this patient will have a stress test done in the morning and we will go from there. 2. Hypomagnesemia. Magnesium has been replaced. I will re-evaluate the magnesium level in the morning. 3. Type 2 diabetes. It looks like this patient has been getting glipizide and metformin at home. We will continue with sliding scale insulin and pattern of blood sugar in the morning. Probably, I will start this patient on a long-acting insulin. 4. Hypertension, continue with blood pressure medication. We will monitor. 5. History of atrial fibrillation, aware. He is in sinus rhythm at this moment and apparently he was not on blood thinners due to a history of GI bleed. cc: Milton Snyder MD
--- NOTE | 2019-01-12 13:38 | ECHO REPORT ---
ORDER DATE: 01/12/2019 INTERPRETING PHYSICIAN: Dr. Mauricio Ledezma. ECHOCARDIOGRAPHIC MEASUREMENTS: 1. Interventricular septum: 1.7 cm. 2. Left ventricular posterior wall: 1.6 cm. 3. Diastolic diameter: 3.4 cm. 4. Left atrium: 3.0 cm. 5. Aorta: 3.5 cm. SUMMARY OF THE 2-DIMENSIONAL IMAGIN. Aortic valve leaflets were calcified, trileaflet. 2. Pulmonic valve was normal. 3. Mitral valve was normal. 4. Tricuspid valve was normal. There is mild tricuspid regurgitation. Peak velocity across the tricuspid valve was 2.5 m/sec. 5. Pulmonary artery systolic pressure of 35 mmHg. 6. Peak velocity across the aortic valve less than 2 m/sec by Doppler studies. There is no aortic stenosis. There is trace aortic regurgitation, there is aortic sclerosis. 7. There is mild mitral regurgitation. 8. Normal left ventricular cavity size. Concentric left ventricular hypertrophy. 9. Estimated ejection fraction of 55-60%. 10. Endocardium not well visualized in all views. 11. There is no pericardial effusion or obvious intracardiac mass or thrombus seen. cc: Mauricio Ledezma MD
[2019-01-12] MEDS: EFFIENT PO SCH (13:46)
[2019-01-12] MEDS: IMDUR PO SCH (13:47)
[2019-01-12] MEDS: RANEXA PO SCH ×2 (13:47→22:12)
[2019-01-12] MEDS ORDERED: LIPITOR PO SCH (21:00)
[2019-01-12] MEDS: CORDARONE PO SCH (22:15)
[2019-01-13 05:37] LABS: BASO# 0.03 X1000 (0.0-0.2); BASO% 0.4 % (0.0-0.8); EOS% 2.4 % (0.0-10.0); HEMATOCRIT 38.6 % (42.0-52.0); HEMOGLOBIN 13.1 g/dL (14.0-18.0); IMM GRAN# 0.04 X1000 (0.0-0.04); IMM GRAN% 0.5 % (0.0-0.5); LYMPH# 2.31 X1000 (1.2-3.4); LYMPH% 27.6 % (20.5-51.1); MCH 28.3 PG (27-31); MCHC 33.9 g/dL (33-37); MCV 83.4 FL (81-99); MONO% 8.4 % (1.7-9.3); MPV 11.7 FL (7.4-10.4); NEUT# 5.09 X1000 (1.4-6.5); NEUT% 60.7 % (42.2-75.2); PLT 214 X1000 (130-400); RBC 4.63 XMIL (4.7-6.1); RDW 13.3 % (11.5-14.5); WBC 8.37 X1000 (4.8-10.8)
[2019-01-13 05:58] LABS: AGAP 12; BUN 19 mg/dL (8-22); CALCIUM 8.7 mg/dL (8.8-10.2); CHLORIDE 103 mmol/L (98-107); COSMO 285; CREATININE 1.1 mg/dL (0.7-1.2); ESTIMATED GFR > 60; GLUCOSE 218 mg/dL (70-104); MAGNESIUM 1.7 mg/dL (1.5-2.7); POTASSIUM 4.1 mmol/L (3.5-5.1); SODIUM 138 mmol/L (136-145); TCO2 23 mmol/L (25-35)
[2019-01-13] MEDS: HUMULIN R SUBQ SCH ×2 (06:05→11:47)
[2019-01-13 08:20] VITALS: BP 193/86
--- NOTE | 2019-01-13 08:31 | HISTORY AND PHYSICAL ---
PRIMARY CARE PROVIDER AND STRIPER SPRAY GUN: DR. Stover. CHIEF COMPLAINT: Palpitations. HISTORY OF PRESENT ILLNESS: Mr. Lea is a 78-year-old, male with a past medical history most notable for proximal atrial tachycardia, coronary artery disease, hypertension, hyperlipidemia, diabetes mellitus, and CVA. The patient states that he had slept all day and all night. He woke up this morning and could feel that his heart rate was elevated. The patient states that he did try to palpate his carotid pulse though it was beating so fast he could not count it. He reports feeling kind of weak during this time as well. He did call an ambulance to bring him to the ER. The patient reports it was only after he arrived to the ER that he began having chest pain though he states this has subsided at this time since he had nitroglycerin 1 inch topical paste placed on his chest. The patient denies any headache, dizziness, or shortness of breath. He denies any chest pain at this time. This has subsided since being given nitroglycerin. He denies any abdominal pain, nausea, vomiting, or diarrhea. The patient has reported some recent problems with constipation. He denies any dysuria or urinary frequency. He denies any pain, numbness, tingling, or swelling in extremities. Upon evaluation in the ER, the patient was noted to be in SVT with a rate of 187. They did give initial medication of adenosine though it only improved the patient's heart rate and brought it from the 180s down to 120. He was given metoprolol which did further improve his heart rate. The patient is back in sinus rhythm at this time with a heart rate that is maintaining in the 70s and 80s. His blood pressure has remained stable throughout his ER visit so far. His last blood pressure was 163/98. The patient did have an elevated blood glucose level in the 300's though electrolytes were within normal range. We are adding on magnesium level. His 1st troponin was 0.029. The patient will be placed in CIC for close monitoring. REVIEW OF SYSTEMS: A 14-point review of systems was conducted with the patient and all were negative except for pertinent positives as mentioned above in HPI. PAST MEDICAL HISTORY: 1. SVT. Looking back, the patient does have a history of having atrial tachycardia with previously documented SVT and atrial fibrillation. The patient as previously mentioned did present to the ER with SVT today. Though he has been given medications of initially adenosine and then metoprolol and did convert to a sinus rhythm. The patient did report a brief period of chest pain after he arrived to the ED, though this did resolve with nitroglycerin. We will continue with contiguous cardiac telemetry and frequent vital signs. We will do a series of cardiac enzymes. Electrolytes are within normal range except for we have added magnesium level and are awaiting that result. We will perform an echocardiogram. We have placed a consultation with cardiology and will await their evaluation and further recommendations for management. 2. History of atrial tachycardias. We will continue treatment as mentioned above as well as we will also continue the patient's regularly prescribed medication of metoprolol tartrate 100 mg p.o. b.i.d. It was mentioned in the patient's previous cardiology consultation that the patient was not a candidate for anticoagulation though he has a history of gastrointestinal bleeding. 3. Chest pain. The patient did report a brief period of chest pain after he arrived to the emergency department though this did resolve with placement of nitroglycerin. He has not had any further chest pain at this time. We will continue with cardiac workup as mentioned above. The patient did receive a 325 mg aspirin p.o. in the ER. We will continue with aspirin 81 mg p.o. daily. 4. Coronary artery disease, status post stent placement. 5. Hypertension. We will continue his Norvasc and metoprolol. 6. Diabetes mellitus. We will place him on a sliding scale regular insulin per low-dose protocol. 7. History of cerebrovascular accident. The patient reports no residual deficits. PAST MEDICAL HISTORY: 1. History of coronary artery disease, status post [id number] which he had PCI performed in 2017. 2. Paroxysmal atrial fibrillation. 3. Hypertension. 4. Hyperlipidemia. 5. Diabetes mellitus. 6. History of CVA. 7. History of gastrointestinal bleeding. 8. Nephrolithiasis. 9. History of prostate cancer. 10. History of coronary artery disease. PAST SURGICAL HISTORY: 1. Status post cryotherapy and laser transurethral resection of prostate secondary prostate cancer. 2. Cardiac stent placement. SOCIAL HISTORY: The patient denies any cigarette use though did smoke cigars for many years. He denies any alcohol or illicit drug use. FAMILY HISTORY: Positive for hypertension in his father and a history of a CVA. ALLERGIES: No known allergies. HOME MEDICATIONS: 1. Norvasc 5 mg p.o. daily. 2. Lipitor 80 mg p.o. daily. 3. Glipizide/metformin 5/500 mg tablets 2 tablets p.o. b.i.d. 4. Imdur 60 mg p.o. daily. 5. Metoprolol tartrate 100 mg p.o. b.i.d. 6. Effient 10 mg p.o. daily. 7. Ranexa 1000 mg p.o. b.i.d. DIAGNOSTIC DATA/LABORATORY RESULTS: White blood cell count is 12,640, hemoglobin 13.6, hematocrit 40.7, platelet count 242,000. PTT 14. INR 1. PTT is 28. Sodium 139, potassium 4.6, chloride 100, serum bicarb is 22. BUN 21, creatinine 1.2 with a GFR 59. Glucose 314. Calcium 9.1. Troponin 0.029. EKG showed SVT at a rate of 187. This time there was some ST depression. Consider subendocardial injury with a QTc of 455. Chest x-ray showed no acute abnormality. PHYSICAL EXAMINATION: VITAL SIGNS: Heart rate 73, respirations 14, blood pressure is 160/98, oxygen saturation 100%. GENERAL: Mr. Lea is a pleasant 78-year-old, male, who is resting on the ER stretcher in no acute distress. He was awake, alert, and able to answer questions appropriately. HEENT: Head is atraumatic, normocephalic. Pupils are equal, round, and reactive to light, were 3 mm bilaterally and brisk. Oral mucosa moist. Oropharynx is clear. NECK: Supple. Trachea midline. There was no carotid bruits noted upon auscultation. CARDIOVASCULAR: Patient has S1-S2 present. No murmurs, gallops, rubs appreciated. Regular rate and rhythm. PULMONARY: Patient has symmetrical chest expansion bilaterally. Lung sounds are clear to auscultation in bilateral full hannon. ABDOMEN: Soft. Nondistended. The patient did report some generalized soreness upon palpation. Bowel sounds were present in all 4 quadrants and were normoactive. EXTREMITIES: No cyanosis or edema noted. Pulse, motor, and sensory were intact in all extremities. Radial pulses and pedal pulses are 2+ bilaterally. INTEGUMENTARY: The patient's skin is pink, warm, and dry. NEUROLOGICAL: Patient is alert and oriented to person, place, time, and situation. He is able to move all extremities. There does not appear to be any focal neurological deficits noted at this time. PLAN: The patient was placed on CIC with telemetry. He will have vital signs q.4 hours. We will do strict intake and output. He will be on a diabetic and heart healthy diet. We will continue with a series of cardiac enzymes. The patient did report some recent constipation and did have some abdominal soreness noted. We have placed orders for a KUB abdomen. It is likely the patient is constipated. If this is so, we will order a bowel regimen as well. Further orders and recommendations pending hospital course, diagnostic studies, and physician evaluation. Dictated by CAMERON Lopez for Marshal Restrepo MD cc: Marshal Restrepo MD
[2019-01-13] MEDS ORDERED: APRESOLINE IV PRN (08:46)
[2019-01-13] MEDS ORDERED: LEXISCAN ONE (08:54)
[2019-01-13] MEDS ORDERED: ASPIRIN PO SCH (09:00)
[2019-01-13] MEDS: NORVASC PO SCH (10:02)
[2019-01-13] MEDS: CORDARONE PO SCH (10:02)
[2019-01-13] MEDS: EFFIENT PO SCH (10:02)
[2019-01-13] MEDS: LOVENOX SUBQ SCH (10:02)
[2019-01-13] MEDS: IMDUR PO SCH (10:02)
[2019-01-13] MEDS: MIRALAX PO SCH (10:02)
[2019-01-13] MEDS: COLACE PO SCH (10:02)
[2019-01-13] MEDS: RANEXA PO SCH (10:03)
[2019-01-13] MEDS: LOPRESSOR PO SCH (10:03)
[2019-01-13] MEDS ORDERED: LANTUS INSULIN SUBQ ONE (10:08)
--- NOTE | 2019-01-13 10:37 | PROGRESS NOTE ---
DATE: 01/13/2019 SUBJECTIVE: This patient came back from the stress test today. As per the patient, he is hungry and he was feeling sick to his stomach during the test. Also he is confused; as per the patient, he is in a hotel, but he is oriented to person, date of and year. He is following commands. OBJECTIVE: Vital Signs: Temperature 98.1 degrees, pulse 67, respiratory rate 16, blood pressure at 8 a.m. 196/86, oxygen saturation 99 on room air. HEENT: Head normocephalic. No trauma. PERRLA. Neck: Supple. No JVD. No masses. Central trachea. Chest: Clear to auscultation. No wheezing. Some crepitus at the bases. Abdomen: Soft, nontender, nondistended. No hepatosplenomegaly. Extremities: No edema, no clubbing, no cyanosis. Neurological examination: The patient is alert. He is oriented x2. He is disoriented to place. As per the patient, he is in a hotel. LABORATORY: WBC 8.3, hemoglobin 13.1, hematocrit 38.6, platelets 214. Sodium 138, potassium 4.1, chloride 103, bicarbonate 23. BUN 19, creatinine 1.1, glucose 218, calcium 8.7, magnesium 1.7. ASSESSMENT AND PLAN: 1. The patient presented with supraventricular tachycardia, with a history of ischemic cardiomyopathy Cardiology Department evaluated this patient. His troponins were up. They tried to do a stress test today, but apparently the patient refused in the middle of the test. He has been feeling sick at his stomach, and he is confused as well. We will monitor this patient; at this moment, he is in sinus rhythm. 2. Hypomagnesemia, resolved. 3. Type 2 diabetes. We will continue with pattern of blood sugar and sliding scale insulin. I will ask for a hemoglobin A1c. Yesterday, he received 14 units of sliding scale insulin, so I will give him today a single dose of Lantus 10 to see how he does. 4. Hypertension. Continue with the same management. 5. History of atrial fibrillation, aware. He is in sinus rhythm at this moment, and apparently he was not on blood thinners due to history of gastrointestinal bleed. 6. Confusion. I am not quite sure if this patient has baseline dementia. As per the patient, he is in a hotel room today. He was completely alert and oriented times 3 yesterday. cc: Milton Snyder MD
--- NOTE | 2019-01-13 14:44 | Diag Imaging Result Document ---
PROCEDURE NAME: MYOCARDIAL PERFU SCAN, REST - 01/13/2019 STUDY: Rest perfusion study. INDICATIONS: Chest pain, palpitations, history of paroxysmal atrial tachycardia. PROCEDURE IN DETAIL: Mr. Lea was brought to the nuclear laboratory. He had a resting study with injection of 13.7 mCi of technetium-99m sestamibi with usual imaging protocol. He was intended to have a stress exam, however, the patient would not consent to stress and would not proceed with the study. FINDINGS: 1. No evidence of abnormal extracardiac uptake. 2. Stress perfusion shows a relatively large moderate intensity defect located involving the entirety of the inferior wall as well as portions of the inferior septal and inferior lateral. No assessment of stress defects was performed. No gating performed on this study. cc: Jason Hills MD
--- NOTE | 2019-01-13 22:57 | DISCHARGE SUMMARY ---
ADMISSION DATE: 01/12/2019 DISCHARGE DATE: 01/13/2019 ADMISSION DIAGNOSES: 1. Supraventricular tachycardia with history of atrial tachycardia. 2. Atrial tachycardia. 3. Chest pain 4. Coronary artery disease with history of stent. 5. Hypertension. 6. Diabetes mellitus type 2. 7. History of cerebrovascular accident. DISCHARGE DIAGNOSES: 1. Supraventricular tachycardia in a patient with ischemic cardiomyopathy, on amiodarone and metoprolol, rate controlled. 2. Hypomagnesemia. Magnesium was replaced. 3. Diabetes mellitus type 2, stable. 4. Hypertension. 5. History of atrial fibrillation. CONSULTATIONS: Dr. Hills. HOSPITAL COURSE: On 01/12/2019, Mr. Jonathan Lea, a 78-year-old male with a medical history of having paroxysmal atrial tachycardia or atrial fibrillation and coronary disease apparently had slept all day and night. He woke up that morning and felt like his heart rate was elevated and felt a fast carotid pulse that he palpated. He felt weak. He called an ambulance, who brought him to the emergency department. After arrival to the emergency department he started having chest pain, which subsided after 1 inch of nitroglycerin paste placed on the chest wall. Telemetry revealed SVT of 187 beats per minute. He received a dose of adenosine, which brought it from the 180s down to the 120s, and then was given metoprolol which improved his heart rate down to the 70s and back in normal sinus rhythm. His blood pressure remained stable. He was transferred to the [facility] for close observation. He was resumed on his metoprolol 100 mg p.o. twice daily. He had 1 more episode of having a heart rate up into the 200s and received a second dose of adenosine and then a dose of digoxin, which once again improved his heart rate. He was started on an amiodarone drip. Today there was an attempt made to do his cardiac stress test, but it was unable to be completed. The patient was confused and agitated and left against medical advice with his daughter. PHYSICAL EXAMINATION: VITAL SIGNS: Temperature 98.1, heart rate 67, respiratory rate 16, blood pressure 193/86, O2 saturation 99% on room air. DISCHARGE LABA DATA: White blood cells 8000, hemoglobin 13, hematocrit 38, platelet count 214. Sodium 138, potassium 4.1, BUN 19, creatinine 1.1, glucose 218. Calcium 8.7. PERTINENT IMAGING: Chest x-ray negative. Abdominal x-ray: Mild constipation but nothing acute. Echocardiogram: Pulmonary artery systolic pressure of 35. Mild MR, concentric LVH. EF is 55% to 60%. Mild TR. Last EKG showed normal sinus rhythm, rate of 77. QTc was 416. DISCHARGE MEDICATIONS: These were unable to be evaluated and prescribed, as the patient left prior to evaluation. DISCHARGE DISPOSITION: The patient left against medical advice to home. Dictated by CAMERON Weeks for Milton Snyder MD cc: CAMERON Weeks MD
== END 2019-01-13 12:38 | disposition left against medical advice (07) | DRG 310 ==
LOC: ED 00:38 → EDIPHOLD 05:48 → SUATTDRO 05:48 → 3S 23:32
PROVIDERS: ATTEND Internal Medicine
CPT/HCPCS: 71010; 71045; 74000; 74018; 78451; 80048; 82550; 82948; 83735; 83880; 84484; 85025; 85610; 85730; 93005; 93306; 96361; 96365; 96366; 96368; 96372; 96375; 96376; 99285; A9270; A9500; J0150; J0153; J0282; J1160; J1650; J2785; J3475; J7030; J7060; XXXXX

== ENCOUNTER 2019-02-18 09:25 | Observation (INO) ==
[2019-02-18] MEDS ORDERED: CARDIZEM IV ONE ×2 (09:35→09:58)
[2019-02-18 09:55] LABS: BASO# 0.04 X1000 (0.0-0.2); BASO% 0.3 % (0.0-0.8); EOS# 0.14 X1000 (0.0-0.7); HEMATOCRIT 38.9 % (42.0-52.0); HEMOGLOBIN 13.3 g/dL (14.0-18.0); IMM GRAN# 0.03 X1000 (0.0-0.04); IMM GRAN% 0.2 % (0.0-0.5); LYMPH# 5.06 X1000 (1.2-3.4); LYMPH% 36.3 % (20.5-51.1); MCH 28.5 PG (27-31); MCHC 34.2 g/dL (33-37); MCV 83.3 FL (81-99); MONO# 0.98 X1000 (0.11-0.59); MPV 11.8 FL (7.4-10.4); NEUT# 7.68 X1000 (1.4-6.5); NEUT% 55.2 % (42.2-75.2); PLT 263 X1000 (130-400); RBC 4.67 XMIL (4.7-6.1); RDW 12.9 % (11.5-14.5); WBC 13.93 X1000 (4.8-10.8)
[2019-02-18 10:22] LABS: INR 0.95; PROTIME 13.2 Seconds (11.0-16.0)
[2019-02-18] MEDS ORDERED: MAGNESIUM SULFATE 2 GM/S.W.I. 2 GM/50 ML IVPB IV ONE (10:33)
--- NOTE | 2019-02-18 11:10 | PROVIDER DOCUMENTATION ---
This chart was entered by Eileen Fields Scribe, acting as scribe for Eduardo Dowling MD. HPI-General Adult - General Chief Complaint: Palpitations Stated Complaint: CHEST PAIN Time Seen by Provider: 02/18/19 09:34 Source: patient Allergies/Adverse Reactions: Patient Allergies Allergy/AdvReac Type Severity Reaction Status Date / Time No Known Allergies Allergy Verified 12/16/16 02:22 Home Medications: Home Medication List Medication Instructions Recorded Confirmed Last Taken Type Amlodipine [Norvasc] 5 mg PO DAILY 01/12/19 01/12/19 01/11/19 History Atorvastatin Calcium [Lipitor] 80 mg PO DAILY 01/12/19 01/12/19 01/11/19 History Glipizide/Metformin HCl 2 tab PO BID 01/12/19 01/12/19 Unknown History [Glipizide-Metformin 5-500 mg] Isosorbide Mononitrate E.r. [Imdur] 60 mg PO DAILY 01/12/19 01/12/19 01/11/19 History Metoprolol Tartrate 100 mg PO BID 01/12/19 01/12/19 Unknown History Prasugrel [Effient] 10 mg PO DAILY 01/12/19 01/12/19 Unknown History Ranolazine [Ranexa] 1,000 mg PO BID 01/12/19 01/12/19 01/11/19 History - History of Present Illness -Gen Adult Nature of Presenting Problems: 78 y/o male presents to the ED with palpitations 15 minutes prior to arrival, now with chest pressure. The patient was found to be hypertensive also on arrival. The patient states his friend was driving him to the grocery store when the palpitations began. He gives a history of palpitations with last episode 6 weeks ago and no others since stent placement times one approximately 1.[address] Aaron Vences in [place] as well as history of DM. The patient states his blood sugar was 400 yesterday. NKDA. Location of Pain/Injury: reports: chest (pressure) Pain Radiation: reports: no radiation Quality of Pain: reports: pressure Onset/Duration: reports: other (15 minutes) Timing: reports: still present Context/Activities at Onset: reports: light activity Modifying Factors: improves with: nothing Associated Symptoms: reports: chest pain, dizziness. denies: anxiety, fever/chills, nausea, shortness of breath, vomiting Similar Symptoms Previously?: Yes (6 weeks ago ) Recently seen or treated by another doctor?: Yes (Bridger Hansen 6 weeks ago ) Review of Systems - Adult - REVIEW OF SYSTEMS - ADULT Constitutional: denies: chills, fever, night sweats Eyes: reports: no symptoms reported Ears, Nose, Mouth & Throat: reports: no symptoms reported Cardiovascular: reports: chest pain, irregular heart rate, palpitations. denies: syncope Respiratory: denies: cough, hemoptysis, shortness of breath, wheezing Gastrointestinal: reports: constipation. denies: diarrhea, nausea, vomiting Genitourinary: reports: no symptoms reported Musculoskeletal: reports: no symptoms reported Integumentary: reports: no symptoms reported Neurological: reports: dizziness/vertigo. denies: headache/migraines, syncope Psychiatric: reports: no symptoms reported Endocrine: reports: no symptoms reported Hematologic/Lymphatic: reports: no symptoms reported Allergic/Immunologic: reports: no symptoms reported All Other Systems: Reviewed and Negative Past History - Adult - PAST MEDICAL HISTORY-ADULT Review of Records: reports: Old Records Reviewed, Nursing Assessment Review, Medications Reviewed Major Childhood Illnesses: reports: denies history Cardiovascular: reports: A-Fib, arrhythmia (svt), CAD, HTN, hyperlipidemia, other (SVT ) Respiratory: reports: denies history Gastrointestinal: reports: denies history Obstetrical/Gynecological: reports: denies history Genitourinary: reports: prostate cancer Musculoskeletal: reports: denies history Neurological: reports: denies history Endocrine/Immune: reports: Diabetes Other Conditions: reports: denies history - PRIOR SURGERIES/PROCEDURES Surgical/Procedure History: reports: reviewed, not pertinent, other (Prostectomy;) - PRIOR HOSPITALIZATIONS Prior Hospitalizations: reports: for similar symptoms - IMMUNIZATION STATUS Childhood Immunizations: See Nurse Assessment Flu Vaccine: See Nurse Assessment - FAMILY HISTORY Family History: reviewed, not pertinent - SOCIAL HISTORY Smoking: non-smoker Substance Use: none presently/history of abuse Alcohol Use Frequency: never Living Situation: alone Physical Exam-General - PHYSICAL EXAM-ADULT Initial Vital Signs Reviewed: Yes - CONSTITUTIONAL General Appearance: alert - EYES Eyes: PERRL/EOMI - HEAD, EARS, NOSE, MOUTH & THROAT HENMT: normocephalic/atraumatic, moist mucous membranes, other (edentulous) - NECK Neck: full range of motion, supple - RESPIRATORY Respiratory: lungs clear, normal breath sounds. negative: rales, rhonchi, wheezing - CARDIOVASCULAR Cardiovascular: tachycardia - GASTROINTESTINAL (ABDOMEN) Abdominal Exam: non tender, soft. negative: distended, guarding, rebound - MUSCULOSKELETAL Extremity: normal range of motion, normal gait, no pedal edema. negative: pulse deficit - SKIN Integumentary: normal color, warm/dry - NEUROLOGIC Neurologic: grossly normal - PSYCHIATRIC Psych/Mental Status: oriented x 3 Progress - PLAN OF CARE/RESULTS Progress/Plan/Lab Results: Vital Signs - 8 hr 02/18/19 09:27 Temperature 97.7 F Pulse Rate 204 H Respiratory Rate 18 O2 Sat by Pulse Oximetry 100 Orders Category Date Time Status Diltiazem [Cardizem] Med 02/18/19 09:35 Once 15 mg IV NOW ONE 0942 Cardizem 15 mg. was given and the patient's heart rate went down from 181 to 119 at 0944, then down to just over 100 and then began to rise again up to 115. Will give Cardizem 10 mg., start a drip, and monitor the patient closely. 1005 The patient is resting comfortably and very talkative. Heart rate has once again improved. 1107 Discussed abnormal labs and other findings with the patient. Will contact Dr. Maria for possible admission for observation. The patient is in agreement. Result Diagrams: 02/18/19 09:40 - EKG 1 Time of EKG reading by physician:: 09:37 EKG Read and Signed by:: Eduardo Dowling (no STEMI) EKG Interpretation (*Must complete 3 of following elements*): Abnormal Rate: 181 Rhythm: supraventricular tachycardia ST Wave: elevated (consider inferolateral injury) Comments: consider RV involvement in acute inferior infarct 2 Time of EKG reading by physician:: 09:54 EKG Read and Signed by:: Eduardo Dowling (mp STEMI ) EKG Interpretation (*Must complete 3 of following elements*): Abnormal Rate: 115 Rhythm: sinus tachycardia Comments: nonspecific ST and T wave abnormality - CONSULTS/PCP/HOSPITALIST Notification #1 *Consult/PCP/Hospitalist*: Dr. Maria, Hospitalist Time Discussed: 11:08 Reason/Comments: tachycardia, palpitations, abnormal labs Consult Disposition: Admit Departure - Departure Date of Disposition Decision: 02/18/19 Time of Disposition Decision: 11:09 DIAGNOSIS: Hypomagnesemia, SVT (supraventricular tachycardia), Hypertensive urgency, Chest pain at rest Disposition: ADMITTED INPATIENT 09 Certified Medical Emergency: Emergent Condition: Critical Referrals and Follow-Ups: None,PCP [Primary Care Provider] - - Critical Care Note This patient required my direct & personal management of CC.: Yes Total Time (mins): 100 Critical Care Statement: This patient required my direct personal management to treat or rule out processes, the absence of which, could potentiallly result in sudden, clinically significant life or limb threatening deterioration. Attestation - Physician/ ALINE Attestation Patient care was provided by Advanced Practice Provider:: No The physician spent face to face time with patient:: Yes Advanced Practice Provider documentation review:: Supervising physician onsite and consulted in the evaluation and care of this patient. The physician did have a face to face encounter with the patient. This chart was documented by the indicated scribe, (Eileen Fields, Jim) and accurately reflects the services I performed and decisions made by me, Eduardo Dowling MD, as attested by the provider's signature.
--- NOTE | 2019-02-18 12:48 | EKG Report ---
Test Performed on : 02/18/2019 09:53:32 AM Test Reason : tachycardia Blood Pressure : / mmHG Vent. Rate : 115 BPM Atrial Rate : 115 BPM P-R Int : 200 ms QRS Dur : 080 ms QT Int : 318 ms P-R-T Axes : 000 034 100 degrees QTc Int : 439 ms Sinus tachycardia. Nonspecific ST and T wave abnormality Abnormal ECG When compared with ECG of 18-FEB-2019 09:37, (Unconfirmed) Vent. rate has decreased BY [address] no longer elevated in Inferior leads Nonspecific T wave abnormality has replaced inverted T waves in Lateral leads Unconfirmed Result
--- NOTE | 2019-02-18 12:49 | EKG Report ---
Test Performed on : 02/18/2019 09:37:12 AM Test Reason : repeat ekg Blood Pressure : / mmHG Vent. Rate : 181 BPM Atrial Rate : 441 BPM P-R Int : 000 ms QRS Dur : 082 ms QT Int : 264 ms P-R-T Axes : 000 053 116 degrees QTc Int : [address] elevation, consider inferolateral injury or acute infarct ACUTE [place] / STEMI Consider right ventricular involvement in acute inferior infarct Abnormal ECG When compared with ECG of 12-JAN-2019 08:18, Vent. rate has increased BY [address] elevation now present in Inferior leads ST now depressed in Anterior leads T wave inversion now evident in Lateral leads Unconfirmed Result
[2019-02-18 13:09] LABS: AGAP 14; ALBUMIN 3.6 g/dL (3.5-5.0); ALKALINE PHOSPHATASE 103 U/L (32-122); BUN 23 mg/dL (8-22); CALCIUM 8.7 mg/dL (8.8-10.2); CHLORIDE 99 mmol/L (98-107); COSMO 287; CREATININE 1.1 mg/dL (0.7-1.2); ESTIMATED GFR > 60; GLUCOSE 303 mg/dL (70-104); GOT 14 U/L (10-34); GPT 14 U/L (10-44); POTASSIUM 4.2 mmol/L (3.5-5.1); SODIUM 136 mmol/L (136-145); TCO2 23 mmol/L (25-35); TOTAL PROTEIN 7.4 g/dL (6.3-8.3)
[2019-02-18] MEDS: HUMALOG (PARKWAY) SUBQ SCH ×2 (15:44→21:59)
--- NOTE | 2019-02-18 16:17 | HISTORY AND PHYSICAL ---
ARMED SECURITY OFFICER: Dr. Stover. CHIEF COMPLAINT: "My heart is beating fast." HISTORY OF PRESENT ILLNESS: This is a 78-year-old gentleman with a history of CAD, paroxysmal atrial fibrillation, and diabetes mellitus, who presents to the emergency room complaining of a sudden onset of palpitations and tachycardia. He states that he was driving down the road with his friend going to the grocery store when he felt a thump and felt his heart rate speed up. He states that it was beating so fast he felt like he could not breathe. On arrival to the emergency room, he was found to have a heart rate of 204. EKG revealed SVT. He was given Cardizem 15 mg IV followed by Cardizem 10 mg about 20 minutes later. Heart rates have decreased, and he is now running in the 70 to 90 range. He denies any palpitations, any shortness of breath or any symptoms. He does state that he has had episodes like this in the past. He does not remember the diagnoses for these. PAST MEDICAL HISTORY: 1. Coronary artery disease. 2. Non ST elevation CT for which he underwent PCI back in August of 2017. 3. Paroxysmal atrial tachycardia. 4. Hypertension. 5. Hyperlipidemia. 6. Diabetes mellitus. 7. Coronary artery disease. 8. History of cerebrovascular accident. 9. History of gastrointestinal bleed. 10. Nephrolithiasis. 11. History of prostate cancer. SOCIAL HISTORY: He denies any alcohol, tobacco or illicit drug use. He did smoke cigars for many years. FAMILY HISTORY: Father had hypertension and a CVA. ALLERGIES: No known drug allergies. HOME MEDICATIONS: A list will be obtained by the nursing staff, and once verified, we will review and restart as appropriate. REVIEW OF SYSTEMS: As discussed with patient with pertinent positives stated in HPI. He denied any chest pain, any syncope, dizziness, any cough, fever, chills, any night sweats, recent weight loss or weight gain. No nausea, vomiting, diarrhea, constipation, black or bloody vomitus or stools, hematuria, dysuria, frequency or urgency. PHYSICAL EXAMINATION: GENERAL: This is a very pleasant 78-year-old gentleman who is lying on the stretcher in the emergency room in no distress. VITAL SIGNS: Blood pressure is 170/90 with a heart rate of 97, respirations are 16, and temperature is 97.7 degrees with room air saturations 100%. EYES: Pupils equal, round, and react to light. EOMs are intact. Sclerae anicteric. HEENT: Head is normocephalic, atraumatic. Mucous membranes are moist. NECK: Supple. Trachea midline. CARDIOVASCULAR: Regular rate and rhythm. S1 and S2 appreciated. EXTREMITIES: He has no lower extremity edema. Calves are nontender bilateral. Peripheral pulses palpable x4 extremities. PULMONARY: Breath sounds are clear. No increased work of breathing noted. Chest rise and fall symmetric respirations. GASTROINTESTINAL: Abdomen is soft, nontender, and nondistended. Bowel sounds in all 4 quadrants. NEUROLOGIC: He is alert and oriented x3. SKIN: Warm and dry. LABORATORY: WBC is 13.9 with hemoglobin 13.3, hematocrit 38.9, and platelets 263,000. Magnesium is 1 with a troponin of less than 0.010. ASSESSMENT AND PLAN: 1. PAT/SVT. He is back in sinus rhythm now. He will be admitted to the floor, place him on telemetry and monitor. 2. Hypomagnesemia. Magnesium was repleted in the emergency room. We will repeat. We will draw a CMP to check his other electrolytes and we will treat as appropriate. 3. Hypertension. We will identify his home medicines and continue. 4. History of coronary artery disease. We will trend troponin's and cardiac profile, and continue medicines as appropriate. 5. Diabetes mellitus. We will get pattern blood glucose with sliding scale insulin. 6. History of coronary artery disease. 7. History of gastrointestinal bleed. 8. History of prostate cancer. Aware. Further treatments pending hospital course. Dictated by CAMERON Chen for Koffi Maria MD cc: CAMERON Chen MD
[2019-02-18 18:50] LABS: AGAP 12; BUN 22 mg/dL (8-22); CALCIUM 8.7 mg/dL (8.8-10.2); CHLORIDE 100 mmol/L (98-107); COSMO 287; ESTIMATED GFR > 60; GLUCOSE 242 mg/dL (70-104); POTASSIUM 3.8 mmol/L (3.5-5.1); SODIUM 138 mmol/L (136-145); TCO2 25 mmol/L (25-35)
[2019-02-18] MEDS: LOPRESSOR PO SCH (21:49)
[2019-02-18] MEDS: GLUCOTROL PO SCH (21:49)
[2019-02-18] MEDS: GLUCOPHAGE PO SCH (21:49)
[2019-02-18] MEDS: RANEXA PO SCH (21:50)
[2019-02-19] MEDS ORDERED: HUMALOG SUBQ SCH (07:00)
[2019-02-19] MEDS ORDERED: LOVENOX SUBQ SCH (09:00)
[2019-02-19] MEDS ORDERED: LIPITOR PO SCH (09:00)
[2019-02-19] MEDS ORDERED: IMDUR PO SCH (09:00)
[2019-02-19] MEDS ORDERED: EFFIENT PO SCH (09:00)
[2019-02-19] MEDS ORDERED: NORVASC PO SCH (09:00)
[2019-02-19] MEDS ORDERED: ASPIRIN PO SCH (09:00)
[2019-02-19] MEDS: GLUCOTROL PO SCH (09:59)
[2019-02-19] MEDS: LOPRESSOR PO SCH (09:59)
[2019-02-19] MEDS: RANEXA PO SCH (09:59)
[2019-02-19] MEDS: GLUCOPHAGE PO SCH (09:59)
[2019-02-19 10:30] LABS: HEMATOCRIT 37.3 % (42.0-52.0); HEMOGLOBIN 12.5 g/dL (14.0-18.0); MCH 28.5 PG (27-31); MCHC 33.5 g/dL (33-37); MCV 85.2 FL (81-99); MPV 11.5 FL (7.4-10.4); RBC 4.38 XMIL (4.7-6.1); WBC 8.11 X1000 (4.8-10.8)
[2019-02-19 10:54] LABS: CALCIUM 9.1 mg/dL (8.8-10.2); CREATININE 1.2 mg/dL (0.7-1.2); MAGNESIUM 1.5 mg/dL (1.5-2.7); POTASSIUM 4.2 mmol/L (3.5-5.1)
--- NOTE | 2019-02-19 11:14 | EKG Report ---
Test Performed on : 02/18/2019 7:25:34 PM Test Reason : elevated troponin Blood Pressure : / mmHG Vent. Rate : 080 BPM Atrial Rate : 080 BPM P-R Int : 160 ms QRS Dur : 078 ms QT Int : 360 ms P-R-T Axes : 046 026 067 degrees QTc Int : 415 ms Normal sinus rhythm. Normal ECG When compared with ECG of 18-FEB-2019 09:53, (Unconfirmed) No significant change was found Unconfirmed Result
[2019-02-19 12:13] VITALS: BP 139/72
--- NOTE | 2019-02-19 12:27 | CARDIOLOGY CONSULTATION ---
DATE: 02/19/2019 REASON FOR CONSULTATION: Cardiology was consulted for SVT, abnormal cardiac enzymes. HISTORY OF PRESENT ILLNESS: A 78-year-old, gentleman with a history of coronary artery disease, atrial tachycardia in the past, diabetes. Came to the emergency room with sudden onset palpitations. He was driving down the road and when he noted a thumping sensation in his chest, he came to the emergency room. Was noted to have a heart rate of 200, was given Cardizem 15 mg IV, followed by 10 mg. subsequently, patient went back into sinus rhythm. His electrocardiogram revealed supraventricular tachycardia with ST elevations in the inferior leads and ST depression in the anterior leads. However, post conversion to sinus rhythm, by cardiac enzymes, there were no ST elevations noted. Patient was admitted. His cardiac enzymes are abnormal. He denies chest pain. He has had coronary artery disease and stent placement in the past, in [place], in August 2017. He has been taking his medications regularly. There is no orthopnea or paroxysmal nocturnal dyspnea. REVIEW OF SYSTEM: A 14-point review of systems was done. GI System: There is no history of nausea, vomiting, or diarrhea. There is no history of hematemesis or melena. Central Nervous System: No focal weakness to suggest a CVA or TIA. Genitourinary System: There is no dysuria or hematuria. PAST MEDICAL HISTORY: 1. Coronary artery disease, non-Q-wave myocardial infarction, status post stent placement at [place] in 2016. 2. History of atrial tachycardia. 3. History of hypertension. 4. Hyperlipidemia. 5. History of TIA. 6. GI bleed in the past. 7. Nephrolithiasis. 8. Prostate cancer. SOCIAL HISTORY: He denies any alcohol abuse. He does smoke cigars. FAMILY HISTORY: Father had hypertension and CVA. ALLERGIES: He is not known to be allergic to any medications. MEDICATIONS AT HOME: Included atorvastatin 80, isosorbide mononitrate 60, ranolazine 1000 mg b.i.d., metoprolol 100 b.i.d., Norvasc 5, glipizide/metformin 5/500 two tablets twice a day, prasugrel 10. PHYSICAL EXAMINATION: The patient is pain free. Blood pressure 149/62. Cardiovascular System: Normal jugular venous pressure. There is no thyromegaly. There is no carotid bruit. First and second heart sounds were heard. There was no S3 gallop. Respiratory System: Normal air entry. There are no crepitations or rhonchi. Abdomen: Soft, nontender. There was no guarding or rigidity. Bowel sounds were heard. Central Nervous System: Alert. Was moving all 4 extremities. Examination of extremities revealed no pedal edema. HEENT: Atraumatic, normocephalic. Pupils were equal and reacting to light. LABORATORY EXAMINATION: Revealed sodium 138, potassium 4.2, BUN 26, creatinine 1.2. CK was normal, troponin abnormal at 0.296 and 0.294. Hematology: WBC 8.11, hemoglobin 12.5, hematocrit 37.3, platelet count of 224,000. ASSESSMENT AND PLAN: 1. Mr. Jonathan Lea is a 78-year-old, gentleman with a history of cerebrovascular accident in the past, coronary artery disease, stent placement in August 2017. 2. Hypertension. 3. Comes with complaints of having had palpitations. Was noted to have supraventricular tachycardia. Was given Cardizem which converted to sinus rhythm. During the supraventricular tachycardia, he was noted to have ST elevation in the inferior leads associated with ST depression in the anterior leads. Post cardioversion, the electrocardiogram revealed normal sinus rhythm. There were no ST-T changes. His cardiac enzymes are abnormal. He was admitted on 01/12/2019 and discharged on 01/13/2019. He had supraventricular tachycardia and history of atrial tachycardia at that time. He had left against medical advice. He is admitted again. I had a detailed discussion with the patient. Given his abnormal cardiac enzymes, I have recommended that he undergo a left heart catheterization. Risks, benefits, and alternatives were explained. However, the patient wants to contemplate on that. He wants to discuss with his family as well. In the interim, we will get a limited echocardiogram to assess left ventricular systolic function. 4. As far as medications are concerned, he is on aspirin, Effient, and beta-blockers. I have not made any changes. I have added Lovenox to his medical regimen given his abnormal cardiac enzymes and non-Q-wave myocardial infarction. 5. His last echocardiogram on 01/12/2019 revealed concentric left ventricular hypertrophy. Estimated ejection fraction of 55-60%. 6. When he was admitted on 01/12/2019, he had a chest x-ray which was unremarkable. He also had abdominal x-ray which was unremarkable. Thank you for the consult. We will follow hospital course. cc: Mauricio Ledezma MD
--- NOTE | 2019-02-19 14:13 | ECHO REPORT ---
ORDER DATE: 02/19/2019 INTERPRETING PHYSICIAN: Dr. Mauricio Ledezma. ECHOCARDIOGRAPHIC MEASUREMENTS: 1. Interventricular septum 1.4 cm. 2. Left ventricular posterior wall 1.3 cm. 3. Diastolic diameter 4.0 cm. 4. Left atrium 4 cm. 5. Aortic valve leaflets were mildly sclerosed, trileaflet. SUMMARY OF THE 2-DIMENSIONAL IMAGIN. This is a limited 2D echocardiogram. 2. Normal left ventricular cavity size. 3. Estimated ejection fraction of 55-60%. 4. There is mild concentric left ventricular hypertrophy. 5. There is mild mitral regurgitation. 6. Peak velocity across the aortic valve less than 2 m/sec. 7. There is no aortic stenosis. 8. There is mild aortic regurgitation. 9. There is mild tricuspid regurgitation. 10. There is no pericardial effusion or obvious intracardiac mass or thrombus seen. cc: Mauricio Ledezma MD
--- NOTE | 2019-02-19 16:25 | DISCHARGE SUMMARY ---
ADMISSION DATE: 02/18/2019 DISCHARGE DATE: 02/19/2019 FINAL DISCHARGE DIAGNOSES: 1. Supraventricular tachycardia. 2. Non-Q-wave myocardial infarction. 3. Diabetes mellitus type 2. 4. Hyperlipidemia. 5. History of prostate cancer. 6. Coronary artery disease. CONSULTATIONS: Cardiology consultation with Dr. Ledezma. IMAGING: A limited echocardiogram which revealed an ejection fraction of 55 to 60%. Mild aortic regurgitation. Mild tricuspid regurgitation. HOSPITAL COURSE: Mr. Lea is a 78-year-old male with a history of coronary artery disease, who presented to the ER with palpitations. Upon arrival to the ER, the patient was noted to be in SVT. He was given Cardizem IV push and his heart rate improved down to 70 to 90. He was then admitted to the hospitalist service and Cardiology was consulted. The patient was also noted to have elevated troponins. The patient was seen by the police service technician and it was recommended that the patient undergo a left heart catheterization. However, the patient stated that he was not interested in having that done and requested to leave the hospital. The patient was notified that he runs the risk of the tachyarrhythmia returning and there is also a risk of deterioration and even if he leaves without treatment. The patient stated that he was willing to take the risk and signed the AMA form and left the hospital. cc: Macie Silver MD
--- NOTE | 2019-02-20 07:01 | EKG Report ---
Test Performed on : 02/19/2019 06:29:11 AM Test Reason : Elevated troponin Blood Pressure : / mmHG Vent. Rate : 059 BPM Atrial Rate : 059 BPM P-R Int : 134 ms QRS Dur : 086 ms QT Int : 432 ms P-R-T Axes : 060 043 069 degrees QTc Int : 427 ms Sinus bradycardia. Otherwise normal ECG When compared with ECG of 18-FEB-2019 19:25, (Unconfirmed) No significant change was found Unconfirmed Result
== END 2019-02-19 15:05 | disposition left against medical advice (07) ==
LOC: P.MEDSURG 09:25 → P.ED 09:25 → SUATTDRO 12:05 → 3S 21:02
PROVIDERS: ATTEND Internal Medicine
CPT/HCPCS: 80048; 80053; 82550; 82948; 83735; 83880; 84484; 85025; 85027; 85610; 93005; 93306; 93308; 94761; A9270; J1650; J1815; J3475; XXXXX

== ENCOUNTER 2019-06-20 17:18 | Inpatient (IN) ==
--- NOTE | 2019-06-20 18:22 | PROVIDER DOCUMENTATION ---
HPI-General Adult - General Chief Complaint: Fall Stated Complaint: FALL Time Seen by Provider: 06/20/19 18:21 Source: family Allergies/Adverse Reactions: Patient Allergies Allergy/AdvReac Type Severity Reaction Status Date / Time No Known Allergies Allergy Verified 05/10/19 18:51 Home Medications: Home Medication List Medication Instructions Recorded Confirmed Last Taken Type Amlodipine [Norvasc] 5 mg PO DAILY 01/12/19 06/20/19 01/11/19 History Atorvastatin Calcium [Lipitor] 80 mg PO DAILY 01/12/19 06/20/19 01/11/19 History Glipizide/Metformin HCl 2 tab PO BID 01/12/19 06/20/19 Unknown History [Glipizide-Metformin 5-500 mg] Metoprolol Tartrate 100 mg PO BID 01/12/19 06/20/19 Unknown History Ranolazine [Ranexa] 1,000 mg PO BID 01/12/19 06/20/19 01/11/19 History Aspirin [Aspir-Low] 1 tab PO DAILY 06/12/19 06/20/19 Unknown History Clopidogrel Bisulfate [Clopidogrel] 1 tab PO DAILY 06/12/19 06/20/19 Unknown History Isosorbide Mononitrate [Isosorbide 1 tab PO DAILY 06/12/19 06/20/19 Unknown History Mononitrate ER] - History of Present Illness -Gen Adult Nature of Presenting Problems: This is a 78yo male with recent acute or subacute stroke noted on 06/15/19 who presents via EMS after being found down at home by a friend at 4pm today. Per family that did not hear from him as they regularly do last evening, and per the patient he reports fall between lunch and dinner. The patient had great difficulty speaking as well as right sided weakness. The family reports that he was discharged last week after a stroke/TIA from the hospital. The patient lives by himself. He is able to tell which hospital he is at, and that he is weak on his right side. Review of Systems - Adult - REVIEW OF SYSTEMS - ADULT ROS:: limited per condition Constitutional: reports: other (limted due to aphasia.) Neurological: reports: other (fall, inability to move right side.) Past History - Adult - PAST MEDICAL HISTORY-ADULT Review of Records: reports: Old Records Reviewed Major Childhood Illnesses: reports: denies history Cardiovascular: reports: A-Fib, arrhythmia (svt), CAD, HTN, hyperlipidemia, NM, other (SVT ) Respiratory: reports: denies history Gastrointestinal: reports: denies history Obstetrical/Gynecological: reports: denies history Genitourinary: reports: kidney disease, prostate cancer Musculoskeletal: reports: denies history Neurological: reports: CVA Endocrine/Immune: reports: Diabetes Other Conditions: reports: denies history - PRIOR SURGERIES/PROCEDURES Surgical/Procedure History: reports: cardiac stent, other (Prostectomy; prostate cancer; bladder; lithrotripsy) - PRIOR HOSPITALIZATIONS Prior Hospitalizations: reports: for similar symptoms - IMMUNIZATION STATUS Childhood Immunizations: See Nurse Assessment Flu Vaccine: See Nurse Assessment - FAMILY HISTORY Family History: reviewed, not pertinent Physical Exam-General - PHYSICAL EXAM-ADULT Exam Limited by: aphasia Initial Vital Signs Reviewed: Yes - CONSTITUTIONAL General Appearance: alert, slow to respond - EYES Eyes: PERRL/EOMI. negative: conjuctival exudate, scleral icterus - HEAD, EARS, NOSE, MOUTH & THROAT HENMT: normocephalic/atraumatic. negative: moist mucous membranes (dry MM) - RESPIRATORY Respiratory: normal breath sounds - CARDIOVASCULAR Cardiovascular: no edema, other (irregular rate) - GASTROINTESTINAL (ABDOMEN) Abdominal Exam: soft, tenderness (mild). negative: guarding - MUSCULOSKELETAL Extremity: other (Right sided weakness of the upper and lower extremity (2/5)) - SKIN Integumentary: abrasion(s), other (multiple points of bruising noted on right and left extremities, hemostatic abrasion noted on the left forhead) - NEUROLOGIC Neurologic: abnormal sample taker operator II-XII, motor weakness, sensory deficit, other (Left- sided facial droop and ptosis, EOMI, PERRL, unable to perform cerabellar tests on the right side due to hemiplagia, left side with some upper extremity ataxia, but minimal lower extremity. Patient is aphasic, but does respond to commands.) - PSYCHIATRIC Psych/Mental Status: other ([place] to person, place, and month) Progress - PLAN OF CARE/RESULTS Result Diagrams: 06/20/19 18:45 06/20/19 18:45 - REASSESSMENT Reassessment #1 Status: improving (Patient with some improvement with aphasia. CT showing new subacute occipital infarct. Discussed case with the hospitalist, patient is outside the window of intervension, as he reports symptoms began at 1pm yesterday. Will plan for admission, hospitalist team has accepted the patient.) Departure - Departure Date of Disposition Decision: 06/20/19 Time of Disposition Decision: 19:51 DIAGNOSIS: Right hemiplegia, Aphasia complicating stroke CVA (cerebral vascular accident) Qualifiers: CVA mechanism: other Qualified Code(s): I63.89 - Other cerebral infarction Disposition: ADMITTED INPATIENT 09 Certified Medical Emergency: Emergent Condition: Serious Referrals and Follow-Ups: None,PCP [Primary Care Provider] - - Critical Care Note This patient required my direct & personal management of CC.: No Attestation - Physician/ ALINE Attestation Patient care was provided by Advanced Practice Provider:: No The physician spent face to face time with patient:: Yes Advanced Practice Provider documentation review:: Supervising physician onsite and consulted in the evaluation and care of this patient. The physician did have a face to face encounter with the patient. - NIH Stroke Scale NIH Type: Initial Evaluation Level of Consciousness: 0-Alert LOC Questions (ask month and age): 0-Answers Both Correctly Best Gaze (horizontal eye movement): 0-Normal Visual (use finger movement, counting or visual threat): 0-No Visual Loss Facial Palsy (show teeth or raise eyebrows & close eyes tght: 2-Partial Paralysis Motor Function-left arm: 0-Normal Motor Function-right arm: 3-No Effort Against [place] Motor Function-left le-Drift Motor Function-right le-No Effort Against [place] Limb Ataxia([id number], or heel to ren): 1-Present in one limb Sensory(pin prick to face,arms,trunk,legs-compare side/side): 1-Mild to Moderate Decrease in Sensation Best Language(name item/read sentence.Ex-[place] to [place]): 2-Severe Aphasia Dysarthria(Pt read words or say words Ex.Mama,Tip-Top,Thanks: 2-Near Unintelligible Extinction and Inattention: 0-Normal NIH Total Score: 15
--- NOTE | 2019-06-20 18:53 | Diag Imaging Result Doc PS360 ---
EXAM: CT HEAD W/O CONTRAST HISTORY: stroke like s/s TECHNIQUE: CT head without contrast COMPARISON: 06/12/2019 FINDINGS: A hypodense area has developed in the left occipital lobe since the prior study. No parenchymal hemorrhage. No epidural or subdural hematoma. No subarachnoid hemorrhage. There is atrophy with chronic microvascular ischemic changes. No mass identified on this noncontrasted exam. No hydrocephalus. Right sphenoid sinus mucosal thickening. IMPRESSION: 1.No hemorrhage 2.Subacute left occipital infarct 3.Atrophy with chronic microvascular ischemic changes This exam was performed using automated exposure control, adjustment of mA or kV according to patient size, and/or use of iterative reconstruction technique. Electronically signed by Hakan Colindres 06/20/2019 6:51 PM
[2019-06-20 19:11] LABS: BASO# 0.02 X1000 (0.0-0.2); BASO% 0.1 % (0.0-0.8); EOS# 0.01 X1000 (0.0-0.7); EOS% 0.1 % (0.0-10.0); HEMATOCRIT 35.9 % (42.0-52.0); HEMOGLOBIN 12.2 g/dL (14.0-18.0); IMM GRAN# 0.06 X1000 (0.0-0.04); IMM GRAN% 0.3 % (0.0-0.5); LYMPH# 2.04 X1000 (1.2-3.4); LYMPH% 11.2 % (20.5-51.1); MCH 28.2 PG (27-31); MCV 82.9 FL (81-99); MONO# 1.29 X1000 (0.11-0.59); MONO% 7.1 % (1.7-9.3); MPV 11.4 FL (7.4-10.4); NEUT# 14.83 X1000 (1.4-6.5); NEUT% 81.2 % (42.2-75.2); PLT 297 X1000 (130-400); RBC 4.33 XMIL (4.7-6.1); WBC 18.25 X1000 (4.8-10.8)
--- NOTE | 2019-06-20 19:28 | Diag Imaging Result Doc PS360 ---
EXAM: CHEST-1 VIEW HISTORY: Fall TECHNIQUE: Chest single view COMPARISON: 06/12/2019 FINDINGS: The lungs are well expanded. No lung contusion. No pneumothorax. The heart is not enlarged. The vessels are not distended. There are no infiltrates. No effusion identified. IMPRESSION: Negative exam. Electronically signed by Hakan Colindres 06/20/2019 7:25 PM
[2019-06-20 19:41] LABS: AGAP 21; ALB/GLOB RATIO 1.4; ALBUMIN 4.6 g/dL (3.5-5.0); ALKALINE PHOSPHATASE 106 U/L (32-122); BUN 24 mg/dL (8-22); CALCIUM 9.1 mg/dL (8.8-10.2); CHLORIDE 93 mmol/L (98-107); CK PROFILE 187 U/L (24-204); COSMO 286; CREATININE 1.1 mg/dL (0.7-1.2); ESTIMATED GFR > 60; GLUCOSE 312 mg/dL (70-104); GOT 18 U/L (10-34); GPT 15 U/L (10-44); SODIUM 135 mmol/L (136-145); TCO2 21 mmol/L (25-35); TOTAL BILIRUBIN 0.76 mg/dL (0.20-1.00); TOTAL PROTEIN 7.9 g/dL (6.3-8.3)
[2019-06-20] MEDS ORDERED: APRESOLINE IV PRN (20:58)
[2019-06-20 21:28] LABS: HEMOGLOBIN A1C 7.7 % (4.8-6.0)
--- NOTE | 2019-06-20 21:58 | Diag Imaging Result Doc PS360 ---
EXAM: CT THORAX W/O CONTRAST HISTORY: aspiration pna suspected TECHNIQUE: CT chest without contrast COMPARISON: Recent plain film FINDINGS: No pleural effusions. No cardiomegaly. No aortic aneurysm. There calcified mediastinal and hilar nodes with scattered granuloma. No consolidation. No bronchiectasis. Minimal basilar atelectasis. Tiny noncalcified nodule in the right lower lobe. Prominent coronary artery calcifications. Appears to be a solitary gallstone. Prominent constipation. IMPRESSION: No pneumonia This exam was performed using automated exposure control, adjustment of mA or kV according to patient size, and/or use of iterative reconstruction technique. Electronically signed by Hakan Colindres 06/20/2019 9:56 PM
[2019-06-20] MEDS ORDERED: ZOFRAN IV PRN (22:19)
[2019-06-20 22:49] LABS: CHOLESTEROL 131 mg/dL (0-200); HDL 38 mg/dL (35-55); LDL 65 mg/dL; TRIGLYCERIDES 141 mg/dL (39-160); VLDL 28 mg/dL
[2019-06-20] MEDS ORDERED: PNEUMOVAX 23 IM ONE (23:15)
[2019-06-20] MEDS: NS 1,000 ML IV SCH (23:34)
[2019-06-20] MEDS: ZOSYN 3.375 GM in NS 50 ML IV SCH (23:34)
[2019-06-20] MEDS: RANEXA PO SCH (23:39)
--- NOTE | 2019-06-21 04:18 | HISTORY AND PHYSICAL ---
PRIMARY CARE PHYSICIAN: None. PRIMARY METAL FURRER: Dr. Aaron Shabazz. CHIEF COMPLAINT: Fall. HISTORY OF PRESENT ILLNESS: This is a 78-year-old male who was brought to the emergency department via EMS because he was found down at home by a friend around 4 p.m. today. Apparently he fell at 9 p.m. yesterday according to his ex-. He reports he fell this afternoon. He reports no loss of consciousness. He reports feeling weak from the right side of his body. He has slow speech. Son-in-law at bedside provides most of the information. He was recently discharged from the hospital on 06/14/2019 for right cerebellar acute ischemic lacunar infarct, but apparently all his symptoms had resolved so he was discharged to home. The ER workup revealed on the CT of the head no hemorrhage, subacute left occipital infarct, and atrophy with chronic microvascular ischemic changes. So he is going to be admitted to the hospital for further evaluation and treatment. PAST MEDICAL HISTORY: 1. Diabetes mellitus type 2 [id number]. 2. Coronary artery disease status post stent placement. 3. Hypertension. 4. Hyperlipidemia. 5. Right severe acute ischemic lacunar infarct diagnosis a week ago. PAST SURGICAL HISTORY: Placement of coronary stents. ALLERGIES: No known drug allergies. SOCIAL HISTORY: The patient denies any smoking, drinking alcohol or using illicit drugs. FAMILY HISTORY: Noncontributory. REVIEW OF SYSTEMS: Were reviewed and all symptoms are related to the H P. PHYSICAL EXAMINATION: VITAL SIGNS: Temperature was not checked, heart rate is 97, respiratory rate is 20, blood pressure is 174/103, O2 saturation is 100% on room air. GENERAL: This is a chronically ill-looking 78-year-old male lying in bed in no acute distress with slurred speech. HEENT: Head is normocephalic and atraumatic. Mucous membranes dry. Pupils are equal, round and reactive to light and accommodation. Mild Righ facial drooping noted. NECK. No JVD noted, no carotid bruits, CARDIOVASCULAR. No murmurs, gallops or rubs. Irregular irregular heart rhythm. RESPIRATORY. Clear bilaterally to auscultation. ABDOMEN. Soft, non tender to palpation. EXTREMITIES. no clubbing or cyanosis noted, no edema NEUROLOGIC. Patient has slurred speech, right side hemiparesis with motor strength 0/5 in RLE and 2/5 in RUE. Left UE and LE are normal. mild right facial droop. LABORATORY DATA: White cell count 18.35, hemoglobin 12.2, hematocrit 35.9, platelets 297,000. BMP shows normal creatinine with glucose 312. ASSESSMENT AND PLAN: 1. Left occipital stroke. For that we will do an MRI of the brain. It is really concerning that this patient had another episode of the stroke within a week. We will consult Dr. Mc from Neurology. We will continue with dual antiplatelet treatment with Plavix and aspirin. We will check a lipid panel and hemoglobin A1c as well. 2. Diabetes mellitus type 2. We will continue with sliding scale insulin and Accu-Chek before meals and also at bedtime. 3. Hypertension. We are going to allow permissive hypertension. We will treat blood pressure only the systolic blood pressure greater than 200 and diastolic greater than 100. 4. Hyperlipidemia. We will continue home medications. We will check a lipid panel today. 5. History of CVA. Aware. We will consult Neurology. 6. Disposition. We will monitor this patient closely. We will place this patient on telemetry. 7. Leucocytosis. I am suspecting aspiration pna. Will order CT chest and start Zosyn. cc: Elias Wright MD MTDD
[2019-06-21 05:27] LABS: URINE SOURCE CATH
[2019-06-21 05:30] LABS: BILIRUBIN URINE NEGATIVE (NEGATIVE); BLOOD URINE TRACE (NEGATIVE); COLOR YELLOW; GLUCOSE URINE >1000 mg/dL (NEGATIVE); KETONE URINE 60 mg/dL (NEGATIVE); LEUKOCYTES URINE NEGATIVE (NEGATIVE); NITRITE URINE NEGATIVE (NEGATIVE); PH URINE 5.5; PROTEIN URINE 70 mg/dL (NEGATIVE); SP GRAVITY URINE 1.026; TURBIDITY URINE CLEAR (CLEAR); UR EPITHELIAL CELLS <10 /HPF (<10); URINE BACTERIA NEGATIVE /HPF; URINE RBC <10 /HPF (<10); URINE WBC <10 /HPF (<10); UROBILINOGEN URINE NORMAL (NORMAL)
[2019-06-21] MEDS: ZOSYN 3.375 GM in NS 50 ML IV SCH ×2 (06:32→12:52)
[2019-06-21 06:42] LABS: ALLEN TEST YES; BE -2.2 mmoll (-3.0-3.0); BLOOD TYPE ARTERIAL; HCO3-(ACT) 23.2 mmoll (20.0-26.0); O2(CT) 16.3 mL/dL (15.0-23.0); O2HB 96.5 % (95.0-99.0); PCO2(98.6) 28 mmHg (35-45); PO2(98.6) 103 mmHg (60-100); SAMPLE BLOOD; SAO2 99.4 % (95.0-100.0); THB 11.9 g/dL (11.5-17.4); pH(98.6) 7.47 (7.35-7.45)
[2019-06-21 06:43] LABS: MODALITY ROOM AIR
[2019-06-21 08:07] LABS: BASO# 0.03 X1000 (0.0-0.2); BASO% 0.3 % (0.0-0.8); EOS# 0.05 X1000 (0.0-0.7); EOS% 0.4 % (0.0-10.0); HEMATOCRIT 36.7 % (42.0-52.0); HEMOGLOBIN 12.1 g/dL (14.0-18.0); IMM GRAN# 0.02 X1000 (0.0-0.04); IMM GRAN% 0.2 % (0.0-0.5); LYMPH# 2.29 X1000 (1.2-3.4); LYMPH% 19.6 % (20.5-51.1); MCH 27.6 PG (27-31); MCV 83.8 FL (81-99); MONO# 1.16 X1000 (0.11-0.59); MONO% 9.9 % (1.7-9.3); MPV 11.3 FL (7.4-10.4); NEUT# 8.12 X1000 (1.4-6.5); NEUT% 69.6 % (42.2-75.2); PLT 271 X1000 (130-400); RBC 4.38 XMIL (4.7-6.1); RDW 13.4 % (11.5-14.5); WBC 11.67 X1000 (4.8-10.8)
[2019-06-21 08:27] LABS: AGAP 19; BUN 19 mg/dL (8-22); CALCIUM 9.1 mg/dL (8.8-10.2); CHLORIDE 100 mmol/L (98-107); COSMO 290; CREATININE 1.1 mg/dL (0.7-1.2); ESTIMATED GFR > 60; GLUCOSE 257 mg/dL (70-104); SODIUM 140 mmol/L (136-145); TCO2 21 mmol/L (25-35)
[2019-06-21] MEDS: PLAVIX PO SCH (09:38)
[2019-06-21] MEDS: ASPIRIN EC PO SCH (09:38)
[2019-06-21] MEDS: RANEXA PO SCH ×2 (09:39→21:50)
[2019-06-21] MEDS: PRILOSEC PO SCH (09:39)
[2019-06-21] MEDS: IMDUR PO SCH (09:39)
[2019-06-21] MEDS: LIPITOR PO SCH (09:39)
--- NOTE | 2019-06-21 10:06 | Diag Imaging Result Doc PS360 ---
EXAM: MRI BRAIN W/WO CONTRAST 06/20/2019 HISTORY: left occipital stroke TECHNIQUE: T1 sagittal, axial and post gadolinium-enhanced axial with coronal reformation, axial T2, FLAIR, DWI and coronal gradient echo. COMMENT: The current study is compared with the previous examination of 06/13/2019. There is increased T2-weighted signal intensity present in the left belly of the sue and adjacent midbrain, the left occipital lobe and adjacent temporal lobe, and the anterior inferior left cerebellar hemisphere. There is a small focus of hyperintensity in the inferior right cerebellar hemisphere. There is increased T2-weighted signal intensity in the periventricular white matter and subcortical white matter both hemispheres and particularly in the subcortical white matter of the right frontal lobe. Restricted diffusion is seen in similar areas of the cerebellar hemispheres as well as in the sue and midbrain and left occipital lobe. No restricted diffusion is present in the right frontal lobe or in the periventricular white matter. The area of restricted diffusion in the right cerebellar hemisphere was present at the time the previous study and is somewhat less intensely restricted at the current time. There is no evidence of bleed or abnormal extra-axial fluid collection. There is cytotoxic edema present in the left occipital and temporal lobe lesion. There is some left renal perfusion on the post gadolinium-enhanced enhanced images in the posterior cerebral hemisphere lesion on the left and in the right cerebellar lesion. IMPRESSION: 1. Subacute infarct in the right cerebellar hemisphere. 2. Acute infarcts in the midbrain, sue, and cerebellar hemisphere on the left. Acute infarct in the left temporoparietal occipital region. 3. Chronic ischemic microvascular white matter changes bilaterally in the cerebral hemispheres. Electronically signed by Jean-Pierre Lacey 06/21/2019 10:03 AM
[2019-06-21] MEDS: NS 1,000 ML IV SCH ×2 (12:52→19:24)
--- NOTE | 2019-06-21 13:29 | PROGRESS NOTE ---
DATE: 06/21/2019 SUBJECTIVE: This morning, Mr. Lea refers to be feeling slightly better. The daughter was at the bedside at the time of the encounter. OBJECTIVE: Vital Signs: Blood pressure is 166/75, pulse of 90, respirations 14, temperature is 98.8 degrees. General: Mr. Lea is a 78-year-old gentleman. He is in bed. No distress. HEENT: Mucosa is pink and moist. Anicteric. Acyanotic. Neck: Supple. Chest: Good air entry bilaterally. No crepitations. No rhonchi. Cardiovascular: Regular rate and rhythm. Abdomen: Soft, nontender. Extremities: No pedal edema. ROPING TENDER: The patient is awake, alert. He is dysarthric. I was not able to elicit any visual field deficits, but he has remarkable right- sided hemiparesis with about 3/5 power on the right upper extremity, about 2- power in the right lower extremity. The left is also weak, but much stronger. LABORATORY DATA: WBC is 11.67, hemoglobin is 12.1, platelet count of 271,000. Chemistry is also reviewed, within normal range. The patient's A1c is 7.7. IMAGING STUDIES: An MRI of the brain shows subacute infarct in the right cerebellar hemisphere. There is also an acute infarct in the midbrain, sue, and cerebellar hemispheres on the left. Acute infarct in the left temporoparietal occipital region. There are also chronic microvascular white matter changes bilaterally in the hemispheres. Doppler ultrasound, which was done on 06/13/2019 showed that there was a critical 80% to 99% stenosis on the right internal carotid artery, with 60% to 70% lesion, approaching significant on the left, with anterograde vertebrals bilaterally. ASSESSMENT: 1. Left hemispheric and midbrain stroke, resulting into a right-sided hemiparesis associated with dysarthria. The patient will be evaluated by Neurology. He has been on dual antiplatelets, and high statin treatment, yet he has had another stroke. Will also get Cardiology to evaluate him to rule out any possible intracardiac thrombus with a transesophageal echocardiogram since the transthoracic echocardiogram was negative. I think Mr. Lea will need cardiac monitoring to rule out any intermittent atrial fibrillation or cardiac arrhythmia. 2. Previous history of left-sided hemiparesis. 3. Bilateral internal carotid artery stenosis. Seems to be worse on the right side, where there is a documented 80% to 99% stenosis. The patient was evaluated on the previous at admission by Vascular Surgery. We will reconsult them again. 4. Diabetes mellitus. Will continue with insulin. 5. Hypertension. For now, we will allow liberalization of the blood pressure to allow for perfusion. 6. Leukocytosis. I think this is reactive. A CT scan of the chest showed no pneumonia. I have discontinued the antibiotics. 7. Dyslipidemia. Mr. Lea is on high-intensity statin of 80 mg of atorvastatin, yet his strokes are multiple zones. He has significant atherosclerotic burden both in the carotids and the coronaries. I think he needs another drug beside statins. In this case, I would recommend starting him on a PCSK9 inhibitor (Repatha). 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 8. Coronary artery disease, status post multiple stents in the past. cc: Jesus Bradford MD MTDD
--- NOTE | 2019-06-21 15:26 | GENERAL SURGERY CONSULTATION ---
DATE: 06/21/2019 REASON FOR CONSULT: I have been asked to render an opinion on Mr. Lea regarding his carotid disease and recent stroke by Dr. Mckinney. HISTORY OF PRESENT ILLNESS: Mr. Lea is a 78-year-old white male who was brought to the emergency department on June 20 after he was found lying on the floor by a friend. He had lost communication with his ex- and daughter; therefore, they called a friend to check on him and he was found on the floor. He had apparently fallen due to weakness, on his right side. This was also associated with difficulty with his speech. He had been hospitalized the week prior with what appeared to be a right cerebellar lacunar infarct with evidence of a vertebral artery occlusion on the right. He was at home on aspirin and Plavix and then an episode occurred more recently, leading to his fall and right arm and right leg weakness. His weakness persists even though his arm strength seems to be improved slightly. PAST MEDICAL HISTORY: His other medical problems include type 2 diabetes, coronary artery disease, post multiple stent placement, hypertension, hyperlipidemia. PAST SURGICAL HISTORY: Previous surgery includes coronary stent placements. MEDICATIONS: Currently include aspirin, atorvastatin, Plavix, Apresoline, Imdur, Prilosec, Zofran, Zosyn, Ranexa. ALLERGIES: He has no known drug allergies. FAMILY HISTORY: Unknown. SOCIAL HISTORY: He is . He denies smoking, drinking alcohol, or using illicit drugs. REVIEW OF SYSTEMS: Are negative in the 10 subsystems with the exception of what is noted in the history of present illness and past medical history. PHYSICAL EXAMINATION: Vital Signs: He is afebrile. Heart rate 98, blood pressure 166/75. General: He is bearded. HEENT: His facial strength appears about the same. Neck: No cervical adenopathy. Lungs: Bilateral breath sounds are present. Heart: Regular rate and rhythm. Abdomen: Soft and nontender. No abdominal bruits are heard. Extremities: He has no peripheral edema. Neurologic: His strength, he is weaker in the right arm and right hand than the left. It is hard to differentiate any strength difference in his feet and lower extremity musculature. His speech is abnormal and he does have dysphagia. He is awake and alert. DIAGNOSTIC STUDIES: His MRI is reviewed. His carotid Dopplers were reviewed. His laboratory data is reviewed. ASSESSMENT: 1. Acute left hemispheric stroke of uncertain etiology. 2. Right posterior circulation stroke that is not as acute. PLAN: His carotid disease seems worse on the right than the left based on the imaging from a week ago. In view of the acuity of his stroke, I would simply treat him conservatively and allow him to resolve his symptoms as best he can over the next 4 to 6 weeks. We will then re-evaluate him and consider him for a right carotid endarterectomy in view of the higher stenosis on the right side, but this strictly is dependent on how he is doing at that time. I would continue with dual antiplatelet therapy. cc: Jaime Jackson MD
--- NOTE | 2019-06-21 15:27 | CONSULTATION ---
DATE OF CONSULTATION: 06/21/2019 Mr. Lea is 78 years old and he appears to have had another stroke. He was in the hospital just over a week ago with imaging evidence of acute small right cerebellar hemispheric infarction. He did have some ataxia then. There may have been transient left-sided weakness associated with that earlier event, but that was not present by the time he was evaluated here. Onset of current event sounds seems to have been 3 days ago. According to patient and family, he seemed to be weaker Wednesday, 3 days ago. They did not notice focal features then. He complained of not being able to see the television in his right visual field. He had more difficulty walking 2 days ago. Yesterday, he was noted to be unable to walk and speech was more slurred. Right face was drooped. He presented to the hospital. He was found to have significant right-sided weakness. Workup this admission includes brain MRI showing restricted diffusion consistent with acute ischemic infarction involving the left brainstem, left occipital, and left temporal regions. The recent right cerebellar infarction is again demonstrated. Workup last admission included 06/13/2019 CT angiogram which showed no right vertebral artery demonstrated and nothing else definitely remarkable. Carotid ultrasound showed 80%-99% stenosis in the right internal carotid and 60%-79% stenosis in the left internal carotid. At that point, his deficit was minimal, almost completely resolved, and plans were made to follow him conservatively and to consider elective carotid endarterectomy in coming weeks. Lab this admission showed initial WBC 18,000, later 11,000. Blood sugars were 300s on admission, 200s recently. A1c was 7.7%. He has been afebrile. Heart rate has ranged 90s to 100s. Systolic blood pressures have been stable 160s to 180s. PHYSICAL EXAMINATION: Neurological: On exam, Mr. Lea is awake, alert, attentive. He was bright and communicated well with me. Speech is dysarthric but easily understood. Language function is intact on bedside testing. I observed him with swallowing test and he was able to swallow slowly with small bites of soft pudding. He was able to manage swallowing liquids. His palate is midline. Tongue is midline at rest and protrudes to the right. Gag is intact. Facial motility is diminished on the right in an upper motor neuron pattern. He has good extraocular movement horizontally. He has limited upgaze, typical for age. I do not see dysconjugate gaze or gaze palsy. He has full visual field on careful confrontational finger counting tested monocularly and binocularly. He reports a sense that he does not see as well to the right, but I cannot demonstrate a visual field cut. Strength grades 3/5 in the right arm. Tone is increased in the right arm. He did rapid alternating movements better with the left hand than the right. He performed slowly but did well with right [id number]. His responses were slow and a little bit inconsistent on sensory testing, but he generally reported better sensation over the right hand than the left. I did not test his gait. IMPRESSION: 1. Acute ischemic posterior left hemisphere and left brainstem infarction. This would account for his recent onset right hemiparesis. He likely has relative right hemianopia, but I could not demonstrate that with certainty on bedside examination. I do not see a language deficit. 2. There is history of recent ischemic right cerebellar infarction with stable findings on MRI. 3. He has risk factors for cerebrovascular ischemic problems including hypertension, dyslipidemia, diabetes mellitus, and previous stroke. There is evidence of cerebrovascular disease on imaging studies. PLAN: I do not have any urgent suggestion right now. By report, his course has been stable with improvement in the last 12-24 hours. I would continue permitting moderate hypertension, continue treating blood sugar and lipids aggressively, continue aspirin and clopidogrel. Physical therapy has been ordered. He needs to be very careful with swallowing. I do not think we need to repeat the vascular imaging urgently. His current syndrome does not suggest symptomatic right carotid disease. Renal function is good and we might eventually repeat CT angiogram and/or carotid ultrasound electively. Thanks for asking Neurology to see Mr. Lea. cc: MD ALICIA Shi III
[2019-06-22] MEDS ORDERED: TYLENOL PO PRN (00:18)
[2019-06-22] MEDS: NS 1,000 ML IV SCH ×3 (04:55→23:45)
[2019-06-22] MEDS: PLAVIX PO SCH (08:16)
[2019-06-22] MEDS: ASPIRIN EC PO SCH (08:16)
[2019-06-22] MEDS: RANEXA PO SCH ×2 (08:16→21:32)
[2019-06-22] MEDS: LIPITOR PO SCH (08:16)
[2019-06-22] MEDS: PRILOSEC PO SCH (08:16)
[2019-06-22] MEDS: IMDUR PO SCH (08:16)
[2019-06-22 08:37] LABS: HEMOGLOBIN 10.6 g/dL (14.0-18.0); MCH 28.5 PG (27-31); MCHC 33.1 g/dL (33-37); MPV 11.6 FL (7.4-10.4); RBC 3.72 XMIL (4.7-6.1); RDW 13.5 % (11.5-14.5); WBC 9.77 X1000 (4.8-10.8)
[2019-06-22 09:00] LABS: AGAP 17; ALBUMIN 3.6 g/dL (3.5-5.0); BUN 20 mg/dL (8-22); CALCIUM 8.8 mg/dL (8.8-10.2); CHLORIDE 105 mmol/L (98-107); COSMO 296; CREATININE 1.1 mg/dL (0.7-1.2); ESTIMATED GFR > 60; GLUCOSE 250 mg/dL (70-104); PHOSPHORUS 2.7 mg/dL (2.7-4.5); POTASSIUM 4.1 mmol/L (3.5-5.1); SODIUM 143 mmol/L (136-145); TCO2 21 mmol/L (25-35)
--- NOTE | 2019-06-22 10:28 | EKG Report ---
Test Performed on : 06/22/2019 10:22:39 AM Test Reason : cva Blood Pressure : / mmHG Vent. Rate : 092 BPM Atrial Rate : 092 BPM P-R Int : 138 ms QRS Dur : 080 ms QT Int : 358 ms P-R-T Axes : 030 034 066 degrees QTc Int : 442 ms Normal sinus rhythm. Normal ECG When compared with ECG of 12-JUN-2019 19:01, (Unconfirmed) No significant change was found Confirmed by Sivakumar Toure MD ([id number]) on 06/23/2019 7:00:03 AM
[2019-06-22] MEDS: HUMALOG SUBQ SCH ×3 (10:34→21:33)
--- NOTE | 2019-06-22 10:49 | CARDIOLOGY CONSULTATION ---
DATE: 06/22/2019 CHIEF COMPLAINT ON PRESENTATION: Speech deficits. HISTORY OF PRESENT ILLNESS: Mr. Lea is a 78-year-old, white male with a history of severe coronary disease as well as recurrent strokes. He was actually in the hospital last week with a stroke. He subsequently presented for speech deficits as well as a right-sided weakness that had been going on for several hours prior to admission. He was apparently admitted for a right-sided brain stroke with left-sided symptoms 1 week before. He has known severe right carotid disease. The patient has not been having any chest pain. He recently had a cardiac catheterization in February of this year with subsequent PCI. The patient is a poor historian secondary to speech deficits. Much of the history is obtained via his daughter. PAST MEDICAL HISTORY: 1. Significant for coronary disease with most recent catheterization in February of 2019. At that time, he had 2.25 x 38 mm Josue drug eluting stents to the mid LAD with a jailing of a first and 2nd diagonal with a kissing balloon PTCA to the first diagonal to maintain patency. 2. Sclerotic but not stenotic aortic valve with mild to moderate MR, and mild AI. 3. Severe carotid vascular disease with most recent carotid Doppler in May of 2019 suggesting an 80% to 99 percent stenosis on the right internal carotid with a 60 to 79% lesion on the left internal carotid. This was from May of 2019. 4. Paroxysmal supraventricular tachycardia occurring in February of 2019. 5. Hypertension. 6. Hyperlipidemia. 7. Diabetes. 8. History of CVAs most recent being in May involving a right sided infarct with left-sided symptoms. Most recently on this admission is right-sided symptoms with a diagnosed left-sided infarct by brain MRI. This demonstrated a subacute infarct in the right cerebellar hemisphere with acute infarct in the midbrain sue and cerebellar hemispheres on the left as well as the left temporoparietal/occipital regions. 9. History of GI bleed. 10. History of prostate cancer. 11. History of nephrolithiasis. SOCIAL HISTORY: He does not currently smoke. No alcohol use. FAMILY HISTORY: Significant for hypertension. REVIEW OF SYSTEMS: A 10 system review of systems is negative except for those mentioned in HPI significantly limited due to the patient's speech deficits. PHYSICAL EXAMINATION: Vital Signs: He is afebrile. Heart rate 83. His most recent blood pressure is 182/73. General: He is in no acute distress. HEENT: Oropharynx is moist. He has poor dentition. His eye examination shows pink conjunctivae. White sclerae. Neck: Examination shows no obvious thyromegaly or thyroid tenderness. Cardiovascular: He sounds to be in a regular rate and rhythm. He has no obvious murmurs. He has no S3. Most recent EKG shows normal sinus rhythm. He has no lower extremity edema. Lungs: His chest exam is relatively clear but he has extremely poor inspiratory effort. Abdomen: Soft, nontender, and nondistended. No obvious organomegaly. Skin: Warm and dry throughout without any rashes. Neurological: He is able to move all extremities but he has a significant reduction in his upper and lower extremity weakness essentially symmetric though. He has speech deficits making his speech basically unintelligible. Psychiatric: He seems pleasant. PERTINENT DATA: His brain MRI was noted and discussed above. His chest CT suggested no evidence of infiltrates, prominent coronary disease is noted. His electrocardiogram most recently shows sinus rhythm; that was performed this morning at 10:22. His lab data shows white count 9.7, hematocrit 32, and platelet count 250,000. Sodium is 143. Potassium 4.1, BUN 20, and creatinine is 1.1. His albumin level is 3.6. ASSESSMENT: Mr. Lea is a 78-year-old gentleman with a history of severe coronary disease presenting with recent strokes that have been bilateral in nature. PLAN: We will obtain a regular echo today. The patient has eaten today already so we will proceed with transesophageal echocardiogram tomorrow to evaluate for cardiac embolus. We will also make arrangements for an outpatient ELIZABETH try to identify occult atrial fibrillation. He has severe carotid disease and has been seen by the general surgery service. There are plans in the future to address the right internal carotid. The patient is in a permissive hypertensive phase. He is on high-intensity statin. His most recent LDL was 76 in May. I will discontinue the atorvastatin [address] him on Crestor 40. He is on aspirin and Plavix. No acute recommendations at this time as he has in permissive hypertensive phase. Risks, benefits and alternatives to NIKOLAI were discussed with the patient and his daughter and they agreed to proceed with the testing. cc: MD ALICIA Marshall
--- NOTE | 2019-06-22 18:18 | PROGRESS NOTE ---
DATE: 06/22/2019 SUBJECTIVE: Mr. Lea is awake and alert. He reports no new problems. Vascular surgery suggestion was to continue conservative management, observation and re-evaluate for intervention in coming weeks. Cardiology has seen Mr. Lea with workup in progress. Preliminary report is an echocardiogram showed no source of embolus. On exam, he is awake and alert. Speech is dysarthric. He has some trouble with [id number] testing bilaterally. He continues to have right hemiparesis with increased tone in the right arm and right hand dysdiadochokinesis. No new thoughts or new suggestions from Neurology standpoint. Thanks for asking us to see Mr. Lea. cc: Martha Mc III, MD
--- NOTE | 2019-06-22 19:32 | PROGRESS NOTE ---
DATE: 06/22/2019 SUBJECTIVE: This morning Mr. Lea refers to be doing well. Denies any new complaints. He thinks his right side weakness seems to be getting a lot better. OBJECTIVE: His blood pressure is 165/67, pulse of 93, respirations 14, temperature 97.9 degrees. On general exam, Mr. Lea is a 78-year-old gentleman. He is in bed, in no distress. Mucosa is pink and moist. Anicteric. Acyanotic. Neck is supple.Chest: Good air entry bilateral. There were no crackles, no rhonchi. Cardiovascular: Regular rate and rhythm. GI: Abdomen is soft, nontender. Extremities: No pedal edema. GRAIN WEIGHER: The patient is awake, alert and oriented. He is still slightly dysarthric. The patient does not have any visual defects. The right side still has some hemiparesis, but the power looks a lot stronger. It is about 3+/5 to 5/5. The left side is a lot stronger. LABORATORY DATA: WBC is normal. Hemoglobin is 10.6, platelet count of 250,000. Chemistry is also reviewed, completely within normal range. Glucose is 250. We will continue titrating this. DIAGNOSTIC DATA: No new imaging studies. ASSESSMENT AND PLAN: 1. Left hemispheric and midbrain stroke resulting into a right-sided hemiparesis associated with dysarthria. The patient is on statin. Cardiology has evaluated him for a transesophageal echocardiogram, and there is also a plan for a cardiac event monitor for outpatient. 2. Previous left side hemiparesis, improved. 3. Bilateral internal carotid artery stenosis. Vascular surgeon has been consulted. Plan is to treat conservatively for 4-6 weeks, after which there will be evaluation for possible endarterectomy. 4. Diabetes mellitus. We will continue insulin regimen. 5. Hypertension. We will continue to allow for permissive hypertension. 6. Reactive leukocytosis, resolved. 7. Dyslipidemia. The patient has been switched to Crestor. 8. History of coronary artery disease, status post stent. cc: Jesus Bradford MD
--- NOTE | 2019-06-22 20:37 | ECHO REPORT ---
ORDER DATE: 06/22/2019 MEASUREMENTS: Septal thickness 1.8, left ventricular internal diameter in diastole 2.9, posterior wall thickness 1.6, left ventricular internal diameter in systole 2.0, aortic root 3.2, left atrium 3.3. SUMMARY: 1. Technically difficult study due to limited acoustic window quality. 2. Aortic valve is trileaflet and demonstrates sclerotic changes with adequate opening on 2- dimensional images. Peak gradient across the aortic valve is less than 10 mmHg. There is trace aortic regurgitation. Mitral, tricuspid, and pulmonic valves are without evidence of structural abnormality. There is trace tricuspid regurgitation. The aortic root is normal in size. 3. Normal left ventricular chamber size with moderate concentric left hypertrophy is demonstrated. Estimated left ventricular ejection fraction appears to be at least 65%. No regional wall motion abnormalities are evident. Doppler suggests grade 1 left ventricular diastolic dysfunction. The left atrium, right atrium, right ventricle are normal in size with grossly preserved right ventricular systolic function. 4. No pericardial effusion. 5. Inferior vena cava not well demonstrated. CONCLUSIONS: 1. Technically difficult study. 2. Aortic valve sclerosis without stenosis with trace aortic regurgitation. 3. Moderate concentric left hypertrophy with an estimated left ventricular ejection fraction of at least 65%. 4. Grade 1 left ventricular diastolic dysfunction is suggested. cc: MD Laura Bond PA
[2019-06-22] MEDS: CRESTOR PO SCH (21:32)
[2019-06-23] MEDS: HUMALOG SUBQ SCH ×4 (06:24→21:06)
[2019-06-23] MEDS ORDERED: DIPRIVAN 1% ONE (09:36)
[2019-06-23] MEDS ORDERED: ANESTHESIA PB SET 88 IN 5742 ONE (09:59)
[2019-06-23] MEDS ORDERED: NS 1,000 ML ONE (10:00)
--- NOTE | 2019-06-23 10:30 | Transesophageal Echocardiogram ---
DATE: 06/23/2019 PROCEDURE: Transesophageal echocardiogram. DESCRIPTION OF PROCEDURE IN DETAIL: NIKOLAI was performed to evaluate for and rule out intracardiac source of thrombus. Informed consent was obtained from the patient. The patient was brought to the cardiac catheterization laboratory. Propofol was used to anesthetize the patient. A transesophageal probe was easily passed into the esophagus and ultrasound pictures were obtained. There were no complications. FINDINGS: 1. Normal left ventricular cavity size. Estimated ejection fraction of 60%. 2. Aortic valve leaflets are mildly sclerosed, trileaflet opening normally. 3. Mitral valve was normal. 4. Tricuspid valve was normal. 5. Pulmonic valve was normal. 6. Left atrium was normal. Left atrial appendage was normal. 7. Right atrium was normal. 8. Saline contrast study was negative for patent foramen ovale. 9. There is no aortic stenosis. There is trace aortic regurgitation. 10. There is moderate tricuspid regurgitation. 11. There is mild mitral regurgitation. 12. Pulmonic valve was normal. 13. Ascending aorta was normal; descending aorta had layered plaque. CONCLUSIONS: 1. Normal left ventricular cavity size. Estimated ejection fraction of 60%. 2. There is no obvious intracardiac mass or thrombus seen. 3. There is no pericardial effusion. cc: MD Laura Donovan PA
[2019-06-23] MEDS ORDERED: XYLOCAINE-MPF 2% ONE (11:34)
[2019-06-23] MEDS: PRILOSEC PO SCH (12:05)
[2019-06-23] MEDS: IMDUR PO SCH (12:05)
[2019-06-23] MEDS: RANEXA PO SCH ×2 (12:05→21:07)
[2019-06-23] MEDS: ASPIRIN EC PO SCH (12:05)
[2019-06-23] MEDS: COZAAR PO SCH (12:06)
[2019-06-23] MEDS: NS 1,000 ML IV SCH ×2 (12:06→21:13)
[2019-06-23] MEDS: PLAVIX PO SCH (12:06)
--- NOTE | 2019-06-23 12:34 | PROGRESS NOTE ---
DATE: 06/23/2019 SUBJECTIVE: This morning Mr. Lea refers to be doing a lot better. He is still slightly dysarthric, but he seems to move more actively the right side. His ex- was at the bedside at the time of the encounter. OBJECTIVE: Vital Signs: His current vitals, blood pressure is 189/78, pulse of 75, respiration is 14, temperature is 98.4 degrees, the patient is saturating 100% on room air. General: Mr. Lea is a 78-year-old male. He is in bed, no distress. HEENT: Mucosa is pink and moist. Anicteric. Acyanotic. Neck: Supple. Chest: Good air entry bilateral. There was no crepitations. No rhonchi. Cardiovascular: Regular rate and rhythm. No murmurs. Abdomen: Soft, nontender. Bowel sounds present. FOLDING MACHINE TENDER: The patient is awake, alert, still slightly dysarthric in his speech, was unable to elicit any visual defects. He still has a mild hemiparesis on the right side, but the power is much stronger. LABORATORY DATA: No laboratory data for today. CURRENT MEDICATIONS: 1. Tylenol 650 p.o. q.6h p.r.n. 2. Aspirin 81 mg p.o. daily. 3. Clopidogrel 75 mg p.o. daily. 4. Imdur 30 mg p.o. daily. 5. Omeprazole 40 mg p.o. daily. 6. Ranexa 1000 b.i.d. 7. Crestor 40 mg p.o. daily. 8. Gentle fluids. ASSESSMENT AND PLAN: 1. 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 The patient's neurodeficit seems to be progressively getting better. He has been changed to Crestor. He continues to be on aspirin and Plavix, Cardiology is pending to do a NIKOLAI today. There is also a plan for a cardiac event monitor at home. 2. Previous left side hemiparesis from a stroke, improved. 3. Bilateral internal carotid artery stenosis worse on the right side. The patient has been evaluated by Vascular Surgery and the plan is to conservatively treat for now and re-evaluate him at a later date for possible endarterectomy. 4. Diabetes mellitus controlled on insulin regimen. 5. Uncontrolled hypertension. Mr. Lea is now more than 72 hours out of the acute stroke so we are going to start introducing his antihypertensive medication to gradually get it under better control. 6. Dyslipidemia. The patient has been switched to Crestor. 7. History of coronary artery disease status post stents currently asymptomatic. So in general Mr. Lea is doing well. He is gradually getting better. His right side hemiparesis is progressively improving in strength. He is pending a NIKOLAI today. He is also pending physical therapy evaluation and social work evaluation for rehab placement. cc: Jesus Bradford MD MTDD
--- NOTE | 2019-06-23 13:00 | PROGRESS NOTE ---
DATE: 06/23/2019 SUBJECTIVE: He has had a little bit of trouble swallowing. OBJECTIVE: Mr. Lea is awake, alert, and attentive. Speech continues dysarthric. At times, I thought his speech was a little bit more dysarthric than yesterday, but at other times it was not worse than yesterday. He has some ataxia on [id number] testing bilaterally as before. He used his right arm more purposefully and more consistently today than a few days ago. I do not find any new neurologic deficit. was at the bedside. I encouraged him to be careful with swallowing, to make sure he is sitting up, alert, attentive, taking small bites, and swallowing carefully. No new thoughts or new suggestions from neurology standpoint today. Thanks for asking us to see Mr. Lea. cc: MD ALICIA Shi III
[2019-06-23] MEDS: CRESTOR PO SCH (21:07)
[2019-06-24] MEDS: HUMALOG SUBQ SCH ×4 (06:06→22:30)
[2019-06-24] MEDS: RANEXA PO SCH ×2 (09:54→21:11)
[2019-06-24] MEDS: COZAAR PO SCH (09:54)
[2019-06-24] MEDS: PRILOSEC PO SCH (09:54)
[2019-06-24] MEDS: ASPIRIN EC PO SCH (09:54)
[2019-06-24] MEDS: PLAVIX PO SCH (09:54)
[2019-06-24] MEDS: IMDUR PO SCH (09:54)
[2019-06-24] MEDS: NS 1,000 ML IV SCH (09:55)
--- NOTE | 2019-06-24 16:29 | PROGRESS NOTE ---
DATE: 06/24/2019 SUBJECTIVE: This morning Mr. Lea referred to be doing well. His daughter was at the bedside at the time of the encounter. He was remarkably a lot stronger on the right side than days before. He was able to reach out and shake my hand with the right side which was quite remarkable improvement. OBJECTIVE: Vital signs: Blood pressure is 170/69, pulse 84, respiration is 18, temperature is 97.7 degrees. General: Mr. Lea is a 78-year-old gentleman. He was in bed in no distress. HEENT: Mucosa is pink and moist. Anicteric. Acyanotic. Neck: Supple. Chest: Good air entry bilaterally. No crepitations. No rhonchi. Cardiovascular: Regular rate and rhythm. No murmurs, no rubs, no gallops. Abdomen: Soft, nontender. Bowel sounds present. Extremities: No pedal edema. 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 Still has mild right-sided hemiparesis and some dysdiadochokinesis LABORATORY DATA: His glucose was 204. ASSESSMENT: 1. Left cerebral hemispheric cerebellar and midbrain stroke resulting into a right-sided hemiparesis associated with dysarthria. The patient neuro deficit seems to be progressively getting better. We will continue with medications. The patient NIKOLAI was unremarkable. 2. Bilateral internal carotid stenosis, worse on the right. The patient has been evaluated by vascular surgery and there is a plan to intervene at a later date. 3. Diabetes mellitus. We will control with insulin regimen. 4. Uncontrolled hypertension. We will continue titrating his blood pressure medicines. 5. Dyslipidemia. Patient is currently on Crestor. 6. History of coronary artery disease status post stents, currently asymptomatic. cc: Jesus Bradford MD
[2019-06-24] MEDS: GLUCOTROL PO SCH (18:18)
[2019-06-24] MEDS: CRESTOR PO SCH (21:11)
[2019-06-25] MEDS: HUMALOG SUBQ SCH ×4 (06:16→20:37)
[2019-06-25] MEDS: ASPIRIN EC PO SCH (10:05)
[2019-06-25] MEDS: GLUCOTROL PO SCH (10:06)
[2019-06-25] MEDS: NORVASC PO SCH ×2 (10:06→20:36)
[2019-06-25] MEDS: IMDUR PO SCH (10:06)
[2019-06-25] MEDS: PLAVIX PO SCH (10:06)
[2019-06-25] MEDS: PRILOSEC PO SCH (10:06)
[2019-06-25] MEDS: RANEXA PO SCH ×2 (10:06→20:37)
[2019-06-25] MEDS: COZAAR PO SCH (10:07)
[2019-06-25] MEDS: CRESTOR PO SCH (20:36)
[2019-06-26] MEDS: HUMALOG SUBQ SCH ×2 (06:04→12:16)
--- NOTE | 2019-06-26 09:38 | PROGRESS NOTE ---
DATE: 06/26/2019 Mr. Lea is awake, alert, attentive. Speech continues dysarthric. He is using his right arm much better than when he presented. I do not find a new neurologic deficit on limited bedside exam this morning. He told me he has had a little bit of trouble with swallowing, but nothing major. I encouraged him to take small bites, to proceed very slowly and carefully with eating. I am optimistic that we will see his dysphagia improve with time. No urgent suggestion from neurology standpoint today. Thanks for asking us to see Mr. Lea. cc: MD ALICIA Shi III
[2019-06-26] MEDS: RANEXA PO SCH (10:52)
[2019-06-26] MEDS: COZAAR PO SCH (10:52)
[2019-06-26] MEDS: PRILOSEC PO SCH (10:52)
[2019-06-26] MEDS: PLAVIX PO SCH (10:52)
[2019-06-26] MEDS: NORVASC PO SCH (10:52)
[2019-06-26] MEDS: ASPIRIN EC PO SCH (10:52)
[2019-06-26] MEDS: GLUCOTROL PO SCH (10:53)
[2019-06-26] MEDS: IMDUR PO SCH (10:53)
--- NOTE | 2019-06-26 12:24 | DISCHARGE SUMMARY ---
ADMISSION DATE: 06/20/2019 DISCHARGE DATE: 06/26/2019 DISPOSITION: [facility]. FOLLOWUP: Followup will be with: 1. Dr. Jason Hills. 2. Dr. Mc. 3. Dr. Jackson. CONSULTATIONS DURING THIS ADMISSION: 1. Neurology was consulted. The patient was seen by Dr. Mc. 2. Surgery was consulted. The patient was seen by Dr. Jackson. 3. Cardiology was consulted. The patient was seen by Dr. Jason Hills. ADMISSION DIAGNOSES: 1. Left occipital stroke. 2. Diabetes mellitus. 3. Hypertension. 4. Dyslipidemia. DISCHARGE DIAGNOSES: 1. Left cerebral hemispheric, cerebellar, midbrain strokes resulting into a right-sided hemiparesis associated with dysarthria. 2. Bilateral internal carotid artery critical stenosis, worse on the right. 3. Diabetes mellitus. 4. Hypertension. 5. Dyslipidemia. 6. History of coronary artery disease, status post stents in the past. DISCHARGE MEDICATIONS: 1. Ranexa 1000 mg p.o. b.i.d. 2. Metoprolol 100 mg b.i.d. 3. Glipizide/metformin 2 tablets b.i.d. 4. Aspirin 81 mg daily. 5. Clopidogrel 75 mg p.o. daily. 6. Isordil. 7. Crestor 40 mg p.o. daily. 8. Amlodipine 5 mg b.i.d. 9. Omeprazole 40 mg p.o. daily. 10. Losartan 50 mg p.o. daily. PRESENTING COMPLAINT: Fall. HISTORY OF PRESENTING COMPLAINT: Mr. Lea is a 78-year-old gentleman with multiple comorbidities, including previous coronary artery disease status post stents, diabetes mellitus, hypertension, who was discharged for right severe acute ischemic lacunar infarct, came back this time because of fall, was evaluated, was found to have remarkable weakness on the right side of his body. A CT scan of the head without contrast seems to suggest left occipital infarct and atrophy with chronic microvascular ischemic changes. Mr. Lea was admitted for stroke workup. HOSPITAL COURSE: Mr. Lea was admitted to the medical floor. He underwent an MRI of the brain, which showed subacute infarct of the right cerebellar hemisphere, also acute infarct in the midbrain sue and cerebellar hemisphere on the left, acute infarct also in the left temporoparietal occipital region, and chronic white matter changes. The patient was seen by Neurology (Dr. Mc). Because of the recurrent stroke and the multiple vascular territory, Cardiology was consulted for NIKOLAI, which was successfully done during the hospital course, but did not reveal any abnormality. The patient did have vascular studies of the carotid in his previous admission, which revealed critical stenosis of both, the right worse than the left. Vascular Surgery was consulted again this time, and was evaluated by Dr. Jackson. The decision was made to let the acute stroke heal before any surgical intervention. Mr. Lea was also evaluated by Cardiology, and the decision has been made to let him go on a 30- day cardiac event monitor to rule out any cardiac arrhythmias. This morning, Mr. Lea is remarkably stable. His right-sided neurological deficit seems to be progressively getting better throughout the hospital course. This morning, he still remains a power of about 4-/5 on the right side. The left side is fairly unremarkable. Still has some dysarthric speech. His atorvastatin has been switched to Crestor, high intensity. The patient is going to follow up with the subspecialties that have seen him during the hospital course. All the discharge instructions have been discussed with him, and he voiced understanding. TIME SPENT: Time spent for discharge was 38 minutes. cc: MD Jason Cabezas MD Eston G. Norwood III, MD Robert C. Walker, MD
[2019-06-26 16:53] VITALS: BP 144/58
== END 2019-06-26 18:21 | DRG 65 ==
LOC: SUPCPDRO → ED 17:18 → 3N 21:44 → SUATTDRO 21:44
PROVIDERS: ATTEND Internal Medicine